=== PATIENT | female | born 1955 | race Caucasian/White ===

== ENCOUNTER 2020-06-03 07:52 | Outpatient (RCR) | payer OTHER, SELFPAY ==
[2020-06-03 07:57] VITALS: BMI 50.1
[2020-06-03 07:58] VITALS: BMI 50.1
== END 2020-08-26 14:00 | disposition home or self-care (01) ==
LOC: ANHDMC 07:52
PROVIDERS: PCP Internal Medicine; Visit Provider Internal Medicine
DX: E11.9 Type 2 diabetes mellitus without complications (principal); Z71.3 Dietary counseling and surveillance
CPT/HCPCS: 97802

== ENCOUNTER 2025-01-10 08:39 | Outpatient (CLI) | payer OTHER, SELFPAY ==
--- NOTE | ~2025-01-10 | CT_ITS ---
CT scan of the Neck Technique: 2.5 mm axial scans were obtained through the neck after intravenous administration of 75 c c Omnipaque 350. Coronal and sagittal reconstructions of the neck were obtained. Dose reduction techn ique was used on this scan by utilizing automated exposure control and iterative reconstruction techn ique. The dose-length product (DLP) was 571.20 mGy-cm. Clinical History: Lymphadenopathy Findings: No definite pathologic lymphadenopathy seen. Multiple minimally prominent shotty lymph nodes are pres ent, but not frankly enlarged by size criteria, with largest node measuring 9 mm in short axis. Parap haryngeal spaces appear normal bilaterally. The parotid and submandibular glands appear normal. The pharyngeal mucosal spaces appear normal. No soft tissue masses are seen in the neck. The thyroid gland appears normal. Images of the lung apices reveal no abnormalities. Impression: No significant abnormalities noted. Reviewed, dictated and finalized at [facility]. Impression: No significant abnormalities noted.
--- OUTSIDE RECORDS SUMMARY | 2025-01-10 08:51 | XMS_ITS | CONTINUITY OF CARE DOCUMENT ---
Author Name [email or web address] Address Unknown Organization [facility] Address [id number] [place] [address] [address] [place] [address] Phone [phone] Care Team Providers Care Ldr Nurse Name Role Phone Jarrell Cartwright MD Unavailable OMAIRA ESPINOZA, MESERET Unavailable MESERET CASTANO MD Unavailable [phone] PROBLEMS Condition Status Date Provider Notes Hypertension active Rosanne Hurd Abnormal electrocardiogram active Rosanne January nard Chest pain active Rosanne Hurd INS[employer]ANCE [employer] Payer name Policy type / Coverage type [place] [employer] party ID [facility] [id number] Other [id number] HISTORY OF PROCEDURES Procedure Date Procedure Name Provider Procedure Notes S tatus Stress EKG Dima Veras MD complete d Regadenoson, 4 units Jarrell Cartwright MD completed Cardiolite, 2 units Jarrell Cartwright MD completed SPECT Images Presley Burgess MD complet ed
--- OUTSIDE RECORDS SUMMARY | 2025-01-10 08:51 | XMS_ITS | Continuity of Care Document ---
Author Organization [facility] Address [address] [place] [address] Phone Care Team Providers Care Covered Button Maker Name Role Phone Darrell ESPINOZA, Awa Unavailable Unavailabl e Allergies, Adverse Reactions, Alerts Substance Reaction Status Criticality Sulfa (Sulfonamide Antibiotics) Rash Active No Information Medications Medication Instructions Dosage Effective Dates (start - stop) Status Comments prednisone 10 mg tablet TAKE 5 TABLETS BY MOUTH EVERY DAY - Active Xolair 150 mg/mL subcutaneous syringe INJECT THE CONTENTS OF 2 SYRINGES (300 MG) UNDER THE SKIN EVERY 4 WEEKS - Active levocetirizine 5 mg tablet take 1 tablet by oral route every day in the evening 5 MG - Active famotidine 40 mg tablet TAKE 1 TABLET DAILY AT BEDTIME - Active EpiPen 0.3 mg/0.3 mL injection, auto-injector inject 0.3 milliliter by intramuscular route once as needed for anaphylaxis 0.3 MG - Active Accolate 20 mg tablet TAKE 1 TABLET TWIC E A DAY 1 HOUR BEFORE OR 2 HOURS AFTER MEALS - Active Metrogel 1 % topical apply by topical route every day to the affected area(s) ; rub in gently and completely 0.00 - Active Orladeyo 110 mg capsule take 1 capsule by oral route every day 110 MG - Active ALBUTEROL HFA 90 MCG INHALER INHALE TWO PUFFS BY MOUTH EVERY 4 TO 6 HOURS NEEDED - Active ATORVASTATIN CALCIUM (unknown strength) take 1 tablet by oral route every day Not Available - Active triamterene 37.5 mg-hydrochlorothiazid e 25 mg capsule take 1 capsule by oral route every day 1.00 capsule - Active Procedures Procedure Date Omalizumab injection THER/PROPH/DIAG INJ SC/IM OFFICE/OUTPATIENT VISIT EST Omalizumab injection THER/PROPH/DIAG INJ SC/IM OFFICE/OUTPATIENT VISIT EST Omalizumab injection THER/PROPH/DIAG INJ SC/IM OFFICE/OUTPATIENT VISIT EST IMMUNOTHERAPY INJECTIONS Omalizumab injection THER/PROPH/DIAG INJ SC/IM OFFICE/OUTPATIENT VISIT EST IMMUNOTHERAPY INJECTIONS IMMUNOTHERAPY INJECTIONS IMMUNOTHERAPY INJECTIONS OFFICE/OUTPATIENT VISIT EST IMMUNOTHERAPY INJECTIONS THER/PROPH/DIAG INJ SC/IM Omalizumab injection OFFICE/OUTPATIENT VISIT EST RAPID DESENSITIZATION IMMUNOTHERAPY INJECTIONS OFFICE/OUTPATIENT VISIT EST RAPID DESENSITIZATION OFFICE/OUTPATIENT VISIT EST THER/PROPH/DIAG INJ SC/IM Omalizumab injection OFFICE/OUTPATIENT VISIT EST IMMUNOTHERAPY INJECTIONS OFFICE/OUTPATIENT VISIT EST IMMUNOTHERAPY INJECTIONS ROUTINE VENIPUNCTURE OFFICE/OUTPATIENT VISIT EST IMMUNOTHERAPY INJECTIONS ROUTINE VENIPUNCTURE OFFICE/OUTPATIENT VISIT EST THER/PROPH/DIAG INJ SC/IM Omalizumab injection IMMUNOTHERAPY INJECTIONS OFFICE/OUTPATIENT VISIT EST IMMUNOTHERAPY INJECTIONS OFFICE/OUTPATIENT VISIT EST IMMUNOTHERAPY INJECTIONS IMMUNOTHERAPY INJECTIONS IMMUNOTHERAPY INJECTIONS EXHALED NITRIC OXIDE SUZY AIRWAY INHALATION TREATMENT Prednisone ir or dr oral 1mg AIRWAY INHALATION TREATMENT Albuterol non-comp unit IMMUNOTHERAPY INJECTIONS OFFICE/OUTPATIENT VISIT EST OFFICE/OUTPATIENT VISIT EST IMMUNOTHERAPY INJECTIONS OFFICE/OUTPATIENT VISIT EST IMMUNOTHERAPY INJECTIONS ROUTINE VENIPUNCTURE OFFICE/OUTPATIENT VISIT EST IMMUNOTHERAPY INJECTIONS ROUTINE VENIPUNCTURE OFFICE/OUTPATIENT VISIT EST IMMUNOTHERAPY INJECTIONS OFFICE/OUTPATIENT VISIT EST PERCUT ALLERGY SKIN TESTS PERCUT ALLERGY SKIN TESTS Prednisone oral OFFICE/OUTPATIENT VISIT EST BREATHING CAPACITY TEST NASAL ENDOSCOPY DX OFFICE/OUTPATIENT VISIT EST OFFICE/OUTPATIENT VISIT EST OFFICE/OUTPATIENT VISIT EST OFFICE/OUTPATIENT VISIT EST OFFICE/OUTPATIENT VISIT EST Advance Directives Directive Yes / No Effective Date File Name No Information Encounters Encounter Description Practice Location Reason(s) For Visit Diagnoses Date Provider Providers Copied on Encounter OFFICE/OUTPA TIENT VISIT EST [facility] , [address], [place], [address], tel:[phone] [facility] Other allergic rhinitisChron ic idiopathic urticariaAlle rgic rhinitis due to animal (cat) (dog) hair and danderAllergi c rhinitis due to pollenCervica l lymphadenopat hy 5 Darrell Hamsa. [address], [place], [place], [address]. tel:[phone] [facility] , [address], [place], [address], tel:[phone] [facility] No Information 5 Darrell Hamsa. [address], [place], [place], [address]. tel:[phone] [facility] , [address] [facility] [facility] [address], [place], [address], [place] tel:[phone] [facility] No Information 5 Darrell Hamsa. [address] [facility] [address], [place], [place], [address]. tel:[phone] OFFICE/OUTPA TIENT VISIT EST [facility] , [address] [facility] [address], [place], [address], [place] tel:[phone] [facility] annual (chief complaint) Defects in complement systemChronic idiopathic urticariaAngi oedema, subsequent encounterOthe r allergic rhinitisRosac ea 5 Darrell Hamsa. [address], [place], [place], [address]. tel:[phone] OFFICE/OUTPA TIENT VISIT EST [facility] , [address] [facility] [address], [place], [address], [place] tel:[phone] [facility] annual and xolair (chief complaint) Angioedema, subsequent encounterChro vannessa idiopathic urticariaAlle rgic rhinitis due to animal (cat) (dog) hair and danderAllergi c rhinitis due to pollenDefects in complement systemMild persistent asthma, uncomplicated 4 Darrell Hamsa. [address], [place], [place], [id number]. tel:[phone] [facility] , [address], [place], [address], [place] tel:[phone] [facility] Allergic rhinitis due to pollenAllergi c rhinitis due to animal (cat) (dog) hair and danderChronic idiopathic urticariaAngi oedema, subsequent encounter Dec3 0- 3 Darrell Hamsa. [address], [place], [place], [address]. tel:[phone] OFFICE/OUTPA TIENT VISIT EST [facility] , [address] , [place], [address], [place] tel:[phone] [facility] annual (chief complaint) Body mass index [BMI] 45.0-49.9, adultAllergic rhinitis due to pollenOther allergic rhinitisAller gic rhinitis due to animal (cat) (dog) hair and danderAngioed viral, subsequent encounterEgg allergyDefect s in complement systemChronic idiopathic urticariaVacc ine counseling 2 Darrell Hamsa. [address], [place], [place], [address]. tel:[phone] Specialist : Gabe Medina, [address], [place], [address]. tel:[phone] [facility] , [address] , [place], [address], [place] tel:[phone] [facility] Allergic rhinitis due to animal (cat) (dog) hair and danderOther allergic rhinitisAller gic rhinitis due to pollen 2 Darrell Hamsa. [address], [place], [place], [address]. tel:[phone] OFFICE/OUTPA TIENT VISIT EST [facility] , [address] , [place], [address], [place] tel:[phone] [facility] f/u (chief complaint) Angioedema, subsequent encounterDefe cts in complement systemChronic idiopathic urticariaAlle rgic rhinitis due to animal (cat) (dog) hair and danderAllergi c rhinitis due to pollenOther allergic rhinitisEgg allergyBody mass index [BMI] 45.0-49.9, adult 1 Darrell Hamsa. [address], [place], [place], [address]. tel:[phone] OFFICE/OUTPA TIENT VISIT EST [facility] , [address] , [place], [address], [place] tel:[phone] [facility] Annual check-up (chief complaint) Allergic rhinitis due to animal (cat) (dog) hair and danderAngioed viral, subsequent encounterChro vannessa idiopathic urticariaAlle rgic rhinitis due to pollenDefects in complement systemBody mass index [BMI] 45.0-49.9, adult 1 Darrell Hamsa. [address], [place], [place], [address]. tel:[phone] Specialist : Gabe Medina, [address], [place], [address]. tel:[phone] [facility] , [address], [place], [address], [place] tel:[phone] [facility] No Information 0 Darrell Hamsa. [address], [place], [place], [address]. tel:[phone] OFFICE/OUTPA TIENT VISIT EST [facility] , [address], [place], [address], [place] tel:[phone] [facility] cluster (chief complaint) Allergic rhinitis due to animal (cat) (dog) hair and danderOther allergic rhinitisAller gic rhinitis due to pollenChronic idiopathic urticariaAngi oedema, subsequent encounterEsse ntial (primary) hypertension 0 Darrell Hamsa. [address], [place], [place], [address]. tel:[phone] OFFICE/OUTPA TIENT VISIT EST [facility] , [address], [place], [address], [place] tel:[phone] [facility] cluster immunotherapy (chief complaint) Allergic rhinitis due to animal (cat) (dog) hair and danderAllergi c rhinitis due to pollenOther allergic rhinitisAngio edema, subsequent encounterChro vannessa idiopathic urticaria 0 Darrell Hamsa. [address], [place], [place], [address]. tel:[phone] OFFICE/OUTPA TIENT VISIT EST [facility] , [address], [place], [address], [place] tel:[phone] [facility] here for breaking out (chief complaint) Allergic rhinitis due to animal (cat) (dog) hair and danderOther allergic rhinitisAller gic rhinitis due to pollenChronic idiopathic urticariaAngi oedema, subsequent encounterBody mass index (BMI) 45.0-49.9, adult January- 0 0 Darrell Hamsa. [address], [place], [place], [address]. tel:[phone] Specialist : Kin Robledo[address], [place], [address]. tel:[phone] [facility] , [address] , [place], [address], [place] tel:[phone] [facility] No Information 0 Darrell Hamsa. [address], [place], [place], [address]. tel:[phone] [facility] , [address], [place], [address], [place] tel:[phone] [facility] Chronic idiopathic urticariaAlle rgic rhinitis due to pollenOther allergic rhinitisAller gic rhinitis due to animal (cat) (dog) hair and dander 0 Darrell Hamsa. [address], [place], [place], [address]. tel:[phone] OFFICE/OUTPA TIENT VISIT EST [facility] , [address] , [place], [address], [place] tel:[phone] [facility] Annual check-up (chief complaint) Allergic rhinitis due to pollenChronic idiopathic urticariaRheu matoid arthritis, involving unspecified site, unspecified rheumatoid factor presenceEgg allergy 9 Darrell Hamsa. [address], [place], [place], [address]. tel:[phone] Specialist : Kin Robledo[address], [place], [address]. tel:[phone] [facility] , [address], [place], [address], [place] tel:[phone] [facility] Angioedema, subsequent encounterChro vannessa idiopathic urticariaAlle rgic rhinitis due to pollen Stuart-2 0-201 9 Darrell Hamsa. [address] [facility] [address], [place], [place], [address]. tel:[phone] [facility] , [address], [place], [address], [place] tel:[phone] [facility] Other urticaria Sep- 9201 8 Darrell Hamsa. [address], [place], [place], [address]. tel:[phone] OFFICE/OUTPA TIENT VISIT EST [facility] , [address], [place], [address], [place] tel:[phone] [facility] Angioedema, subsequent encounterAlle rgic rhinitis due to pollenOther urticaria Apr- 8- 8 Darrell Hamsa. [address], [place], [place], [address]. tel:[phone] OFFICE/OUTPA TIENT VISIT EST [facility] , [address], [place], [address], [place] tel:[phone] [facility] allergy evaluation (chief complaint) Chronic idiopathic urticariaAngi oedema, subsequent encounterOthe r allergic rhinitisBody mass index (BMI) 50-59.9 , adult Mar-09 11-201 8 Darrell Hamsa. [address], [place], [place], [address]. tel:[phone] OFFICE/OUTPA TIENT VISIT EST [facility] , [address] [facility] [place] [address], [place], [address], [place] tel:[phone] [facility] xolair injection (chief complaint) Allergy to pollenChronic idiopathic urticariaAngi oedema, subsequent encounter Aug- 6-201 7 Darrell Hamsa. [address], [place], [place], [address]. tel:[phone] OFFICE/OUTPA TIENT VISIT EST [facility] , [address], [place], [address], [place] tel:[phone] [facility] angioedema and hives (chief complaint)all ergy injections (chief complaint) Angioedema, subsequent encounterChro vannessa idiopathic urticariaAlle rgy to pollen Aug- 7 Darrell Hamsa. [address], [place], [place], [address]. tel:[phone] [facility] , [address], [place], [address], [place] tel:[phone] [facility] Follow Up of cluster immunotherapy (chief complaint) Allergy to pollenHivesAn gioedema, subsequent encounter 7 Darrell Hamsa. [address], [place], [place], [address]. tel:[phone] [facility] , [address], [place], [address], [place] tel:[phone] [facility] cluster immunotherapy (chief complaint) Allergy to pollenOther allergic rhinitisHives 7 Darrell Hamsa. [address], [place], [place], [address]. tel:[phone] [facility] , [address], [place], [address], [place] tel:[phone] [facility] allergy evaluation (chief complaint) Allergic rhinitis due to pollenChest congestion 7 Darrell Hamsa. [address], [place], [place], [address]. tel:[phone] OFFICE/OUTPA TIENT VISIT EST [facility] , [address], [place], [address], [place] tel:[phone] [facility] Follow Up of first allergy injection (chief complaint) Angioedema, subsequent encounterAlle rgic rhinitis due to pollenRash 7 Darrell Hamsa. [address], [place], [place], [address]. tel:[phone] OFFICE/OUTPA TIENT VISIT EST [facility] , [address], [place], [address], [place] tel:[phone] [facility] Annual check-up (chief complaint) Angioedema, subsequent encounterAlle rgic rhinitis due to pollenChronic urticariaHip pain, bilateralPain in left hip 7 Darrell Hamsa. [address], [place], [place], [address]. tel:[phone] OFFICE/OUTPA TIENT VISIT EST [facility] , [address], [place], [address], [place] tel:[phone] [facility] allergy evaluation (chief complaint) Angioedema, subsequent encounterAlle rgic rhinitis due to pollen 6 Darrell Hamsa. [address], [place], [place], [address]. tel:[phone] OFFICE/OUTPA TIENT VISIT EST [facility] , [address], [place], [address], [place] tel:[phone] [facility] Annual check-up (chief complaint) Angioedema, subsequent encounterAlle rgic rhinitis due to pollenChronic urticaria 6 Darrell Hamsa. [address], [place], [place], [address]. tel:[phone] [facility] , [address], [place], [address], [place] tel:[phone] [facility] Unspecified osteoarthriti s, unspecified site 5 Darrell Hamsa. [address], [place], [place], [address]. tel:[phone] OFFICE/OUTPA TIENT VISIT EST [facility] , [address], [place], [address], [place] tel:[phone] [facility] reactions from allergy injections (chief complaint)rev iew of her lab work (chief complaint) Other allergic rhinitisAller gic rhinitis due to animal (cat) (dog) hair and danderLocaliz ed edemaAllergic urticariaFood allergy Jun- 8-201 5 Darrell Hamsa. [address], [place], [place], [address]. tel:[phone] OFFICE/OUTPA TIENT VISIT EST [facility] , [address], [place], [address], [place] tel:[phone] [facility] start her first allergy injections (chief complaint) Angioneurotic edemaAllergic rhinitis due to pollen 5 Darrell Hamsa. [address], [place], [place], [address]. tel:[phone] OFFICE/OUTPA TIENT VISIT EST [facility] , [address], [place], [address], tel:[phone] [facility] Follow Up of from january (chief complaint) Allergic rhinitis due to pollenOther adverse food reactions, not elsewhere classifiedAng ioneurotic edema Stuart-2 2 5 Darrell Hamsa. [address], [place], [place], [address]. tel:[phone] OFFICE/OUTPA TIENT VISIT EST [facility] , [address] [address], [place], [address], tel:[phone] [facility] Follow Up of from (chief complaint) Allergic rhinitis due to pollenOther adverse food reactions, not elsewhere classifiedCou ghChronic rhinitis 5 Darrell Hamsa. [address], [place], [place], [address]. tel:[phone] OFFICE/OUTPA TIENT VISIT EST [facility] , [address], [place], [address], [place] tel:[phone] [facility] allergic reaction (chief complaint) Angioneurotic edemaAdverse food reactionDysur ia 4 Darrell Hamsa. [address], [place], [place], [address]. tel:[phone] OFFICE/OUTPA TIENT VISIT EST [facility] , [address], [place], [address], [place] tel:[phone] [facility] follow up from the hospotal (chief complaint) Angioedema 4 Darrell Hamsa. [address], [place], [place], [address]. tel:[phone] OFFICE/OUTPA TIENT VISIT EST [facility] , [address] [facility] [address], [place], [address], [place] tel:[phone] [facility] blood work (chief complaint) Adverse food reactionAbnor mal clinical finding 4 Darrell Hamsa. [address], [place], [place], [address]. tel:[phone] OFFICE/OUTPA TIENT VISIT EST [facility] , [address], [place], [address], [place] tel:[phone] [facility] angioedema and hives (chief complaint) Hives or welts on the skin that appear suddenly duAngioedema 4 Darrell Hamsa. [address], [place], [place], [address]. tel:[phone] Family History Family Member Type Diagnosis Age At Onset Problem (finding) Family history of Systemic lupus erythematosus Immunizations Vaccine Date Status Comments SARS-COV-2 (COVID-19) vaccin e, mRNA, spike protein, LNP, preservative free, 100 mcg/0.5mL dose (Moderna) administered Source: Other Provid er Influenza, injectable, quadrivalent, preservative free, 3 yrs or older administered Note: she received t he flublcok ; Source: Other Provider Payers Payer name Insurance type Covered libertarian ID Authoriza tion(s) [facility] Choice/Choice Plus E2 [id number] Social History Type Description Quantity Date Captured Comments Alcohol Use Details Unknown Caffeine Use Details Unknown Tobacco Use Status No Information Smoking Status No Information Sex Female Vital Signs Date / Time: Height Weight BMI Pulse Rate Blood Pressure Temperature Respiratory Rate Body Surface Area Head Circumference Head Circ. Percentile Wt./David. Percentile BMI percentile Pulse Ox Inhaled Ox 9:49 AM 61.00 in 113.398 kg (250.00 lbs) 47.2 4 kg/m eter (2) 66 /min 118/78 mm[Hg] 98 % Chief Complaint And Reason For Visit No Information Reason For Referral Reason For Referral No Information Plan Of Treatment Date Type Action Status Referral Ordered: Jannie Torres -Rheumatology (related to Unspecified osteoarthritis, unspecified site) ordered Referral Referred To: Jannie Torres [address] [place], [place], [phone] Ordered: Referrals: Jannie Torres -Rheumatology Consult ordered History Of Present Illness Encounter Date Complaint History Of Prese nt Illness annual This is an annua l appointment for patient1-patient has severe allergic rhinitis. 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 Patient has not had blood work in quite some time. But the hives are extremely rare coming on very occasionally, even if it comes on it never wakes up in the middle of the night and she has not required frequent doses of prednisone as she used to in the past period. Her last prednisone Nuz was in June.-Patient presented with soft tissue swelling. She would swell up on her cheek cheeks, then swell up in the soft tissue of her hand, and then her lips would swell up. Ever since starting. Orladeyo-She has not had frequent and severe soft tissue swelling/ angioedema-Not requiring prednisone.-the combination of orladeyo, famotidine,xyzal has helped her the most.-Since montelukast has a FDA black box I reviewed the same thing with the patient for zafirlukast and patient says other than stress in her personal life. She did not have any other problems.-Her rosacea is becoming worse. She was given doxycycline, but it started upsetting her stomach. She has a lot of indigestion with and without food. -Colonoscopy is due next year. Mammogram is past due she works full-time and between taking care of her and working full-time. She has not had time to schedule a mammogram. 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 But because of her personal stress and her family situation she has not been able to. Regular with her allergy injections. However, she feels this allergy season. She has done very well without nasal congestion, postnasal drainage, or sneezing.-Patient has history of chronic in addition to having severe soft tissue swelling, including lip, mouth, chin and hand. Her. Complement levels have always been normal opinion this is also stable-She gets 300 mg xolair-extremely regular. She at least tries to come here every four or five weeks to get her injection and she has not had any. Hives-no need for prednisone in a very long time however takes daily. XyzalSkin is a little dry-she has severe rosacea on her face, which is also new.-She started having severe angioedema which could not be controlled, and she would have flareups in spite of xolair and allergy injections. She was then started on orladeyo-no G.I. symptoms and her angioedema is gone 100%.-Asthma, nasal congestion/sinus infections are also under control. She has not needed rescue inhaler in a very long time continues to take. Zafirlukast-and needs a refill. Her primary care physician will be doing bloodwork soon.Colonoscopy four years ago she passed due for her mammogram. Pap smear was one year ago.Meiners Is under control she has tinnitus no dizziness no vertigo. She's not had a hearing test in a long time but feels that is normal. annual Patient is here for her injections and for her annual exam, extremely stressed because her was recently diagnosed with colon cancer with Mets to the liver. He also had a massive pulmonary embolism and is currently in the hospital. He will come home soon for her to care for him. She has taken FMLA from work and soon at the end of July has to go back to work.She has a good support system around her.Patient will receive her Zoeller injection today. Hives are under control for the most part. In addition to hives her asthma is also under control surprisingly with stress. Patient also gets allergy injections which was continued in spite of Xolair because she had severe grass allergy. That is also going well without any problems and she has no contraindications at the end of four weeks patient feels that she needs her allergy injections. She gets Dust and mold in one bottle, cat head in the other, and grass and tree pollen in the other.Patient started having angioedema-She has gone to see Plasma Processing Technician, multiple testing including compliment levels have always been normal. Suspicion of HAE type three patient was started on Orladeyo which has really helped her. She was 100% asymptomatic till the recent stress in her family and very recently she had one small episode which only needed 20 mg of prednisone. In the past patient used to take tapers of prednisone at least once every two months. That has not happened in a long time. No G.I. side effects with the medication's.Patient needs her influenza vaccine but needs to look for that egg free flu shot. She has had 2+ one Covid infection. f/u Here for a follo w up, she will also get her allergy injection today. Patient is doing very well on Orladeyo-No G.I. side effects, last liver function was done in April 2021 and was normal. In the past patient Used to get lip, eyelid, hand and cheek swelling. Now on the Orladeyo Occasionally, both less frequent and less severe, she gets it only on her hand, it lasts for only a few hours. Since starting the Orladeyo 110 mgs She has not needed prednisone, last prednisone was in March, prior to this she was taking it at least once every 45 days. No need for extra antihistamines. She used to take an extra Benadryl or Zyrtec almost every week. She still has joint aches and pains. She is still getting breakthrough hives but has noticed that the hives are also responding well to the Xolair ever since she started the orladeyo-Previously they would be an outbreak by the third week after her Xolair , now the outbreaks are happening 1 to 2 days before Xolair. She has egg allergies and will call for eggs free flu shot. She used her albuterol two weeks ago, and yesterday she needed it also due to the season change. No nocturnal symptoms. Covid testing done recently negative. Allergy injections are going well. The only complaint is somnolence during the daytime. In spite of wearing a CPAP machine at night. Annual check-up Last week she ochoa d her blood test - CMP - Results are pending, she will call me with it when she hears from PCP Has been tired 1. Allergies are under control- LAST 2 WEEKS she has had break outs of hives and angioedema with swollen hands , around her joints -she is very regular with her meds and she added 30mgs of prednisone- last dose was last night 2 lip swelling - last time was 4 months ago 3 eye lid swelling was one year ago 4 not as frequent but she continues to get hand swelling , once a month , lasts for 2 days , adds prednisone when it does not get better, when it is bad- when the swelling is severe and itchy hives 2016, when she was started on the xolair. She is very regular with Xolair.She admits that does all that has helped considerably but not at 100%. She used to take prednisone way more often multiple times a week she has cut that down to at least once a month. She thinks the humidity makes it worse. cluster here for her sec ond set of cluster immunotherapy injections, she has not had her prednisone in one week , her face is red and she has no symptoms , she has no hives , skin is not itchy , she is fine with her next cluster she forgot to take her eye drops this morning no chest symptomsno hives, her face has been red and that is her baseline no soft tissue swelling cluster immunotherapy Due to the COVID 19 pandemic , she has stopped allergy injections , she was on her Xolair without missing any dose she started having soft tissue swelling and has needed frequent prednisone courses , she has noticed that without her allergy injection she was getting more angioedema she was told to get a cluster done, she agreed and she is here for her first cluster injection today - no symptoms- her swelling is better - no itching , no hives - chest feels great- she has 3 more weeks for her xolair here for breaking out Patient is here for her scheduled Xolair injection. She was started on the Xolair because of history of urticaria and Angioedema.Around the same time she was also started on allergy injections because pollen allergy caused problems. In spite of all these and medications patient has continued to have swelling up her hands or soft tissue from time to time. She was seen and evaluated by Plasma Processing Technician - Call investigation was negative. Due to the COVID-19 pandemic patient had decided Only to get the Xolair and to stop her allergy injections. It has been 15 weeks since she got her allergy injections. In the past 15 weeks patient has continuously needed prednisone as she has had multiple episodes of swelling. Today her face is completely swollen. Under her chin it is swollen. Soft tissues are slightly swollen. She was doing so well that I had cut back on the zafirlukast to once a day.She is taking Xyzal twice a day. She is on scene with the maria a over the counter. No difficulty breathing and no shortness of breath. 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 She has not been exposed to anybody who has been sick.She has a dog at home and has minimal done yardwork. Patient herself noticed that while she was an all medications the frequency in the severity of swelling was much less. Patient gets three bottles of injection.She gets Dust and mold in one bottle,Cat in another and Pollen by itself. Annual check-up Patient is here for her annual exam. She did receive an allergy injection today. She continues to break out into mild-hives/angioedema.Overall it is better but unfortunately she has been unable to get off the prednisone. She uses 20 mg of prednisone as needed. Last use was two days ago. She is still unable to find a trigger and thinks that it is the pollen in the air that causes acute hives and Angioedema This is in spite of Xolair which according to the patient has most definitely helped.In addition the patient takes accolate And is on allergy injections.Dr. Medina her wood coater will be starting her soon on Plaquenil for the diagnosis of rheumatoid arthritis.Right knee still gives her a lot of problems.She has not yet received her flu shot as she's allergic to egg and she is worried that it would flare the angioedema She has seen her primary care physician. She has not seen an OB in a long time, she has had a total hysterectomy. She is behind on her mammogram and cannot recall getting a bone density test.We had discussed testing her for the new panel of mold but patient is unable to get off for [id number]-Xmcdi and Azelastine allergy evaluation Here for her allergy injections, Xolair was last week ( for 3 weeks after the Xolair she had no hives, ) last week when she was due for the Xolair she had hives and needed prednisone, this is the first week after xolair and she has no hives , Her meds- 10mgs xyzal , 20 mgs acoclate once a day , 800mgs cimetidine once a day , azelastine , epinasty eye drops, SCIT and Xolair , She takes diazide water pill1. Her SCIT is going well and she wants to continue it at least thru summer and spring- cough is not there, still has PND - moderate , but over all feels it helps a lot 2. So far she has received 4 xolair injections -consistently after she gets them , her joints hurt - at least for a week , no local reactions , no flu like symptoms , it is not very bother some or does not affect QOL, but she can notice it 3. she has heart burn and indigestion , takes Nexium ,symptoms are more in the night 4. She has had no angioedema since the xolair xolair injection Here for her SC IT and her fist xolair injections as she continued to have hives and angioedema, requiring prednisone very week, she has no complaints today and is doing wellShe just finished another round of steroids, she continues to take her meds and she has had no local reactions with the injections that have been slowly increasing in concentration angioedema and hives Comes in fo r her allergy injection , but her right upper eyelids are swollen, her arms, forearms and underarms are broken out into hives, she has not done anything different, her lips are fine, she has no GI and /or resp symptoms, the hives started yesterday and she has finished all her prednisone She has been using her prednisone at least once a week for hives and/or angioedema, her palms are red and itchy , she has seen her wood coater but no sure diagnosis has been made allergy injections Follow Up of cluster immunotherapy Patient is on cluster immunotherapy, last one was , one week ago , 48 hours after the last injection, she developed angioedema of her left cheek and chin, she had no local reaction at the site of the injection and as always there seem to be no clear reason, she had no breathing issues, she could talk , she self medicated with predniosne , she in on once a day 20 mgs accolate and once a day cimetidineshe was fine till last night - she developed a huge hive under her right arm, she still has mild swelling on the right and left side of her cheek , No other symptoms her skin is dry but not itchy , she has no headaches and no coughing or URI or LRI symptoms cluster immunotherapy Was on SCI T which she stopped and is here for a rapid build up- every week , she finished her 10 PNU and is to start her 100PNU ,she had a cough and chest congestion last week and has done well for the last 2 days, no local reactions at the site of injection, and symptoms did not get worse after the last injection She was given the option of stopping the cluster and going to one dose , she does not want to , she wants to try and get the cluster done She has had no AngioedemaShe has had hives on her genital area probably from pressure, they were very itchy and she self medicated with prednisone and they went away and today is gone allergy evaluation Patient was o n allergy injections which she stopped and is back now for a re-start , we discussed cluster and one week ago a set of 3 - 10 PNU starting at 0.10 cc, 0.20 cc and then 0.30 cc , 30 minutes apart was given on Tuesday , that night she was fine, next day no fevers and no chills, she had some chest tightness and a cough- started with discolored mucous- she took some proair which helped and self started on 20mgs prednisone , next day she saw her PCP - and was given a Z pack and the last one was yesterday , she also took proair -may be 5-6 times a day , not in the middle of the night , she had no local reactions to the injections, she felt some pressure hives around bra line , no angioedema She currently has a raspy voice and she has a cough , when she takes a deep breath and breaths out she ends up with a cough Follow Up of first a llergy injection Here to re-start her allergy injection, she has a red itchy patch on her right shoulder under her bra strap , no other angioedema and no hives or any itching , she has no allergy symptoms, I discussed her consent from with her and she has taken her medications this morning No coughing and no chest symptoms No GI symptoms No headache Annual check-up This is an bobby Jaramillo, she saw a wood coater - last week - spoke to him about her angioedema , she now gets welling in her fingers , elbows, knees and feet, Dr. Marie- has not started her on any new meds but has sent for blood work she stopped SCIT aug 2016 and wants to restart as it helped with her symptoms due to high mold levels which included , watery teary eyes and the hives , she now describes pressure urticaria her meds are - 10 mgs Montelukast at bed time, 20mgs of Zyrtec at bed time, 400mgs cimetidine at bed time, azelastine nasal 2 sp each nostril BID, epinastine eye drops and dyazide for HTN she was last seen 11 months ago and from then till now , she has had to go to urgent care 4 times- each time -with massive hives , her recent visit was last month and her last prednisone was last nightShe also has hip and knee pain , the knee pain is worse when she has some leg swelling , bone density was done by her - OBDIANEN - 2 years ago - she was told she has osteopenia- not on any medsShe refuses to get her flu shot although 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 works as a 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 She has started an exercise regimen by joining an ex club has a dog at home, no water leak at home, no carpets at home allergy evaluation Ella is here for her allergy injections, she has swelling in her lower lips and left side of her cheek, her eyelids are not swollen, her hands and feet are not currently swollen , she can talk , breath and swallow She noticed it last night , took 10 mgs prednisone along with her 10 ms zyrtec , 400mgs cimetidine and montelukast ,her only other med is diazide She did take Aleve at 530 last evening and this started at 730 PM No reaction after her last allergy injection No new meds and no exposure to outside wind or other animals , she has a dog at home This swelling is less frequent and severe since she started her allergy injections but does resurface from time to time without any obvious the triggers Annual check-up Toshiacharles mansoor briseno nferring her SCIT injections to the office, she has no update and no new meds and no new medical Hx, PCP appointment was on Sep 2015 all blood work was normal , she is willing to continue her SCIT in spite that my office will be a long drive for her , magaly time she goes to the office , even if she has mild hives or if she has mild swelling in her hands an dfeet the office does not give her , her injections and so she has ,missed too many injections an dhas been unable to buil up , she thinks the SCIT has helped as her symptoms used to be worse she has chronic hives -she gets them 1-2 times a month, mainly in her arms , they are better - the frequency and severity is better- used to have them every day not now , no nocturnal hives at all, she leaves it alone and she goes away , if she takes another zyrtec , it goes away , she has taken PRN prednsione in the past -6 months - alteast - 4 a week each month. her angioedema- mainly in her hands and face - some times with hives - not worse, mild and resolves within 24-48 hours, her hives and angioedem are aways worse in november and december with SCIT - she thinks her allergy symptoms, hives and angioedema are better, still has angioedema but not as severe, no nocturnal at all and no thorat symptoms and no ER visits reactions from allergy injection charles jaramillo was asked to come in here to get her allergy injection , she is on 100 PNU , she is very regular and may be very mild local reactions Not related to her allergy injections she gets very minor allergic like - reactions- swelling in the arch of her foot, knuckles on her hand , right eye-gets redness and swelling and itching -these are random , she usually wakes up in the morning with these reactions feet swelling is always at night -they can hurt , itchy and the area feels hot , last time, she thinks it was is in relation to the allergy injections: she had minor local redness after the injection on 05-29 , it was mildly ithcy - she got it around 3:45 pm and waited 1/2 hour ,at 7:00pm that night her eyes , left hand and feet were swollen - pain , redness and itching locally she took zyrtec , also took prednisone at 10:00pm as she has more of the itchy and swelling and now she has hand swelling - 20 mgs prednisone at 11:pm and all her reactions were gone the very next day ,this was the first time she had a reaction with the allergy injectionno associated chest or GI issues earlier that day she was at work - spent a lot of time in play ground duty- no lunch , for breakfast she ate fruit and yogurt , dinner was after the reaction started and she had gone out to eat -steak , potato and brocolli review of her lab work Sep 2013- ESR was slightly elevated at 37 , normal is <30 CBC showed mild elevtaed WBC but she was on prednsione2013 IgE was normal , immunocap was positve for egg white skin tets was positive for dust , cat , tree, grass and moldalso positive for sesame seed, peanuts, treenuts and egg [id number] were not lowTSH was normal CU panel was 0CBC and CMP was normal start her first kristin rgy injections over all Ella is doing well, 3-4 days ago she was sick ,after she ate she was sick to her stomach , tired and had flu like symptoms , she is better today , she knows she needs to hydrate more ,when she was sick she started with hives - took zyrtec BID and that helped , no lip swelling and no angioedema at that timeshe has been symptoms free, she has not had any hives or angioedema after her last vitis 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[place] and she has a consent form from the person who will administer her injectionsEpipen and syriges have been called in to her phramacy Follow Up of from january Ella has f inally been able to stop her antihistamines and she is doing well, she has been off meds since last tuesday -her throat is starting to get scratchy, she had mild not progressive angioedema of her hands and feet since she stopped her meds, not bad,not severe -lasted 48 hours , and went away ,She still feels swollen on her left foot, , right ankle, mildly in her fingers , none on her face chest- is fine except with exerction she feels short winded skin- is getting mildy itchy , nape of her neck had a few hives and some on her arms stomach feels fine did have some constiation ,after she ate too much dairy and that was followed by diarrhea for 2 daysocc she can get dizzy - stuffness in her eyes, ears and noseAt home she has no carpets, heavy rain has caused her basement to have a mild water leak , dog at home, son's house has catno barn exposue 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 she knows she cannot eat any peanuts, treenut , sesame seed ,shell fish,eggsalthough she has no concern for stinging insects -never been stung as an adult - as a likke kid she remembers being stung by small bees after stepping on them - she describes a large local - limited to one joint space swelling , did not pass out Follow Up of from Ella's voice is hoarse, she felt like she was getting some swelling in her thorat this morning, she self started on prednisone 20 mgs , last night she was coughing , no snzeeing , feels like there is post nasal drainage , no fevers or chills, no new food- she stays away from peanuts , tree nuts, egg , sesame - she tells me she has not had any accidental ingestions took zyrtec yesterday and today - she was supposed to stay away from them and comein for a skin test eyes are itchy , like pink eye and matted , allergy eyes drops OTC no help, ears -have been full and itchy chest has been mildly tight , breathing has been heavy and she has a deep sigh from time to time no wheezingsleeps well at night with a CPAP ,Dr. Juan Antonio Clark in [facility] is her PCP allergic reaction has c alled 04-11 for prednisone, she walks in here today with her right eyelid swollen shut . she has been off zyrtec for 8 days and 5 days ago she had to take 10mgs prednisone left over as she felt an itching in her thorat and saw hives under her neck and chin I saw her last in January last and she was fine up until 2 weeks ago , in the interm she had minor angioedema of her feet , hands and face and some hives, never been this bad- she has an epi but has not needed it epi and nor had to go to the ER .Some times she has felt like she could have taken her prednsione, she even tried and took an extra zyrtec that did not help . 2 weeks ago when she had some angioedmea, she had no help with any meds, added benadryl - no help , she then took prednsione for 7 days - took 6 and then stopped , this morning when she woke up ,her right eye was completely closed shut and swollen ,her hands are itching and her left foot is itchy.yesterday - morning she was fine, she drove thru [employer] for breakfast and -ate grill hines and cheese -no egg ,drank tea, did not have any lunch , no snack, dinner was - donalds - ham burger and tea , not outdoor activity, no cleaning , no exposure to latex , last pain med was 1 week ago -as she had nasal congestion similar to cold-took tylenol, no new supplementsnever a smoker,mammograma was 10 years ago , PAP was 2 years, colon- 5 years ago ,not due for 5 years Functional Status Date Functional Assessmen t No Information Instructions Date Instruction Additional Infor duane Giving encouragement to exercise Related to Body mass index [BMI] 45.0-49.9, adult Giving encouragement to exercise Related to Body mass index [BMI] 45.0-49.9, adult Dietary needs education Related to Body mass index [BMI] 45.0-49.9, adult Dietary needs education Related to Body mass index [BMI] 45.0-49.9, adult Giving encouragement to exercise Related to Body mass index [BMI] 45.0-49.9, adult Weight monitoring Related to Bod y mass index (BMI) 45.0-49.9, adult Dietary needs education Related to Body mass index (BMI) 45.0-49.9, adult Dietary needs education Related to Body mass index (BMI) 50-59.9 , adult Giving encouragement to exercise Related to Body mass index (BMI) 50-59.9 , adult cc to Dr Marie and Cc :Dr Vernon christie Related to Angioedema, subsequent encounter Risks and Benefits o f allergy injections was explained, informed consent was signed by the patient to receive out of office immunotherapy, patient was infomed that she was expected to stay in the office for 30 minutes for observation, should inform office in case of change in insurance and medications, should notify the office if she is sick .All questions were answered Related to Allergic rhinitis due to pollen Allergy immunotherap y education provided. Related to Allergic rhinitis due to pollen cpnsent form to reci magi allergy injections outside the office was given to the patient, she will get it signed and will come here for her first allergy injections. Risks and Benefits of allergy injections was explained, informed consent was signed by the patient to receive in office immunotherapy, patient was infomed that she was expected to stay in the office for 30 minutes for observation, should inform office in case of change in insurance and medications, should notify the office if she is sick .All questions were answeredepi and syringes sent Related to Allergic rhinitis due to pollen Related to Angio neurotic edema How to read food lab els education provided. Related to Other adverse food reactions, not elsewhere classified In preparation for a skin test avoid antihistamines including oral, topical, eye drops and nasal sprays; avoid using topical steroids on your back; no oral steroids for 7 days before the skin test.- eye drops, astelin and zyrtec RHINOSCOPY was done to rule out infections, she had swolen tubinates and clear drainage no infected mucous Related to Cough after blood work liudmila dickerson be drawn at lab [facility] she was asked to - use ice on eye lid - keep epipen handy for worst reactions- start on prednisone 10 mgs - take on a full stomach - 5 today , 4 for 2 days, 3 for 2 days , 2 for 2 and one for 2 days Blood work was sent for complements, serum tryptase, CBC and CMP Related to Angioneurotic edema She was strictly abilio d not to consume peanuts, treenuts, sesame seed and egg- avoid contact with them and do not cook for the family with these ingredients, avoid all products made in the same facility that process these . Related to Adverse food reaction Assessments Type Assessment Date assessment Other allergic rhinitis assessment Chronic idiopathic urticaria January assessment Allergic rhinitis due to animal (cat) (dog) hair and dander assessment Allergic rhinitis due to pollen assessment Cervical lymphadenopathy 2024 Patient Care Teams Name Effective Dates (start - stop) Status Members No Information
--- OUTSIDE RECORDS SUMMARY | 2025-01-10 08:51 | XMS_ITS | Clinical Summary ---
Author Organization [facility] D Address [address] [place] [address] Care Team Providers Care Phone Circuit Operator Name Role Phone Juan Antonio Loo MD Primary Care Provider Gabe Mdeina MD Unavailable [phone] Awa Ramírez MD Unavailable [phone] Allergies Active Allergy Reactions Criticality Noted Date Comments Animal Dander Wheezing High 06/30/2017 Egg Hives,Angioedema High 06/30/2017 Grass Pollen Wheezing Medium 06/30/2017 Nuts Hives,Angioedema High 06/30/2017 Shellfish Containing Products Hives,Angioedema High 06/30/2017 Sulfa (Sulfonamide Antibiotics) Rash Medium 06/06 Medications triamterene-hyd roCHLOROthiazid e (triamterene-hy droCHLOROthiazi de) 37.5-25 mg per tablet/capsule Take 1 tablet/capsule by mouth daily. Active epinastine 0.05 % ophthalmic solution 1 drop 2 (two) times a day. Active azelastine (ASTELIN) 137 mcg (0.1 %) nasal spray Administer 1 spray into each nostril 2 (two) times a day. Use in each nostril as directed Active cimetidine (TAGAMET) 400 mg tablet Take 400 mg by mouth 2 (two) times a day. Active predniSONE (DELTASONE) 20 mg tablet Take by mouth. PRN Active levocetirizine (XYZAL) 5 mg tablet Take 5 mg by mouth 2 (two) times a day Active zafirlukast (ACCOLATE) 10 mg tablet Take 10 mg by mouth 2 (two) times a day Active omalizumab (XOLAIR) 150 mg injection 300 mg every 30 (thirty) days Active diclofenac-miSO PROStol DR (ARTHROTEC 70) 75-200 mg-mcg EC tablet 9 Active EPINEPHrine (EPIPEN) 0.3 mg/0.3 mL auto-injection syringe Inject 0.3 mL into the muscle as instructed 8 Active PROAIR HFA 90 mcg/actuation inhaler 9 Active hydroxychloroqu ine (PLAQUENIL) 200 mg tablet Take 1 tablet (200 mg total) by mouth 2 (two) times a day 60 tablet 3 9 Active Active Problems Problem Noted Date Diagnosed Date Obstructive sleep apnea on CPAP 06/06/2019 Degenerative tear of posteri or horn of medial meniscus of right knee 06/06/2019 Overview (06/08/2019): MRI Knee Right WO Contrast Order: [id number] Status: Final result Visible to patient: No (Not Released) Dx: Primary osteoarthritis of right knee;... Details Reading Physician Reading Date Result Priority Will Zimmerman MD 06/08/2019 Narrative RESULT: HISTORY: Right knee pain and instability EXAMINATION: MRI KNEE RIGHT WO CONTRAST ORDER DATE: 06/08/2019 8:15 AM TECHNIQUE: Multiplanar, multisequence MR imaging is obtained COMPARISON: NONE FINDINGS: MENISCI: Medial meniscus: Longitudinal tear posterior horn. Cannot exclude possible root tear with mild meniscal displacement into the medial gutter Lateral meniscus: Intact. LIGAMENTS: Cruciate ligaments: Thinning and edema in the femoral side of the ACL. Medial collateral ligament: Superficial and deep components intact. Mild periligamentous edema. Lateral collateral ligament: Intact. Posterolateral corner structures: Intact. EXTENSOR MECHANISM: The distal quadriceps and patellar tendons are intact. The patella is normally positioned within the femoral groove. There is no retinacular disruption. FLUID: No joint effusion. Small Silveira's cyst. OSSEOUS and ARTICULAR STRUCTURES: Bones: No fracture, subarticular marrow edema in the medial tibial plateau. Patellofemoral compartment: Marked patellar chondrosis. Medial compartment: Severe narrowing with severe cartilage thinning and degeneration and marrow edema in the medial tibial plateau, 2 millimeters of extrusion into the medial gutter of the medial meniscus Lateral compartment: Moderate hyaline cartilage thinning OTHER FINDINGS: None. Impression Posterior horn medial meniscal tear with extrusion into the medial gutter Edema in the femoral component of the ACL question strain or partial tear Medial collateral ligament edema Electronically signed by: Will Zimmerman M.D. Specimen Collected: 06/08/19 09:40 Last Resulted: 06/08/19 09:55 Assessment & Plan (06/06/2019 5:45 PM CDT): See discussion above. MR knee requested. Primary osteoarthritis of right knee 06/06/2019 Assessment & Plan (06/06/2019 5:44 PM CDT): Patient with spontaneous onset severe R knee pain x 1 week with inability to bear weight. She has mild tenderness at patella and tibia with outside x-rays (unavailable today for our review) reportedly documenting osteoarthritis but no acute fracture. She has been managing pain with Arthrotec and a brief steroid pulse ordered by her PCP. She has moderate pain and some laxity suggesting possible injury to collateral ligament or meniscus. Will obtain MR knee to rule out same. Further management plans pend imaging review. Undifferentiated inflammatory arthritis 03/26/20 Overview (06/06/2019): Images from the original note were not included. US Hands Bilateral for Rheumatoid Arthritis (C) Order: [id number] Status: Final result Visible to patient: No (Not Released) Dx: Swelling of multiple joints Details Reading Physician Reading Date Result Priority Armani Jeffries MD PhD 04/09/2019 Schedule Routine, Read Routine (OP Routine) Werner Dinh MD 04/09/2019 Narrative EXAMINATION: 1. US HANDS BILATERAL FOR RHEUMATOID ARTHRITIS (C) HISTORY: Arthritis. FINDINGS: Grayscale and color Doppler images of the bilateral hands were obtained. Comparison is made to left and right hand radiographs 03/26/2019. Small amount of fluid without increased vascularity is seen along the bilateral 1st and 2nd metacarpal phalangeal joints. The 1st interphalangeal joints, 2nd proximal interphalangeal joints, 3rd metacarpal phalangeal and proximal interphalangeal joints are normal. No erosions are noted. Small amount of fluid surrounds the extensor tendons on the mid dorsal wrists, likely the 3rd/4th compartments. Impression 1. Small bilateral 1st and 2nd metacarpal phalangeal joint effusions without increased vascularity or thickening to suggest synovitis. 2. No erosions are seen. 3. Small amount of fluid surrounds the extensor tendons of the bilateral mid dorsal wrists without evidence of tenosynovitis. Dictated by: Werner Dinh M.D. The radiology attending physician has personally reviewed this study, and had reviewed and/or edited this written report and agrees with it. Electronically signed by: Armani Jeffries MD, PHD Specimen Collected: 04/09/19 12:11 Assessment & Plan (06/06/2019 5:41 PM CDT): Reviewed with patient ultrasound findings consistent with inflammatory arthritis: 1. Small bilateral 1st and 2nd metacarpal phalangeal joint effusions without increased vascularity or thickening to suggest synovitis. 2. No erosions are seen. 3. Small amount of fluid surrounds the extensor tendons of the bilateral mid dorsal wrists without evidence of tenosynovitis. Dictated by: Werner Dinh M.D. The radiology attending physician has personally reviewed this study, and had reviewed and/or edited this written report and agrees with it. Electronically signed by: Armani Jeffries MD, PHD Recommend consider trial hydroxychloroquine. Discussed risks and benefits. Patient educational materials provided. Will defer initiating Rx until more acute R knee pain/instability addressed (see below). Assessment & Plan (03/26/2019 4:26 PM CDT): Images from the original note were not included. Patient returns after 20+ month absence for evaluation recurrent swelling hands/wrists, feet/ankles in the setting of chronic urticaria. Previous screening for associated autoimmune disease (06/2017) unremarkable: She provides photodocumentation of Swelling hand, forearm and thumb some of which looks as if it is giant urticaria (associated with itching per patient), but other suggests palindromic rheumatism or synovitis (?CPPD) given heat and severe pain. Will update lab as per orders including x-ray hands/wrists (rule out erosions; rule out chondrocalcinosis). Further diagnostic and management plans pend review of same. 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 Previous screening for associated autoimmune disease (06/2017) unremarkable. Alpha-1 antitrypsin normal. She has had rare recurrent respiratory embarrassment from angioedema (one hospitalization 08/2018 discussed). She denies fever, chills, abdominal pain, diarrhea. Will check tryptase (rule out MCAS). Assessment & Plan (06/30/2017 12:40 PM CDT): As above. Urticaria 06/30/2017 Assessment & Plan (03/26/2019 4:27 PM CDT): As above. 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 She has required chronic H1 and H2 antihistamines as well as frequent corticosteroids (for management associated episodic angioedema). She has had one hospitalization almost requiring intubation for respiratory distress (fortunately avoided same). She has had allergy evaluation per Dr. Awa Ramírez with allergies documented to shellfish, nuts, eggs, and aero-allergens (pollens and pet dander) but did not respond to hyposensitization therapy. She notes severe arthralgias and myalgias associated with her outbreaks of urticaria. KENDALL, DNA antibody, RF , and CCP have all been negative. Given the persistence of single lesions > 24 hours the possibility of urticarial vasculitis must be considered. Her brother has urticaria as well raising possibility of familial urticarial syndrome. She does not note her lesions necessarily cold-induced or exacerbated by other physical changes. Will pursue further laboratory testing as per orders. If labs afford no further clues a biopsy of a fresh lesion to rule out Urticarial vasculitis may be a consideration. Class 3 severe obesity due t o excess calories with serious comorbidity and body mass index (BMI) of 50.0 to 59.9 in adult 06/30/2017 Assessment & Plan (06/06/2019 5:42 PM CDT): An optimal BMI (body mass index) is between 20 and 25. Encourage weight loss. Each pound of weight lost unloads 3-4 pounds per square inch pressure from weight bearing joints. Diet and exercise are the keys to weight management. Assessment & Plan (03/26/2019 4:27 PM CDT): An optimal BMI (body mass index) is between 20 and 25. Encourage weight loss. Each pound of weight lost unloads 3-4 pounds per square inch pressure from weight bearing joints. Diet and exercise are the keys to weight management. Assessment & Plan (06/30/2017 12:41 PM CDT): An optimal BMI (body mass index) is between 20 and 25. Encourage weight loss. Each pound of weight lost unloads 3-4 pounds per square inch pressure from weight bearing joints. Diet and exercise are the keys to weight management. Steroids have made weight management more difficult as patient reports steroid pulses for nearly one week each month for years. Surgical History Surgery Date Site/Laterality Comments SECTION 09/05/1987 - 09/04/1988 SECTION 09/05/1988 - 09/04/1989 SECTION 09/05/1990 - 09/04/1991 CHOLECYSTECTOMY 09/05/1990 - 09/04/1991 HYSTERECTOMY 09/05/1999 - 09/04/2000 2 partial excessive menstral and cycle & ovarian cysts Family History Medical History Relation Name Comments Urticaria Brother Alcohol abuse Father Cancer Father liver Hypertension Father Diabetes Mother's Sister Hypertension Paternal Grandmother Relation Name Status Comments Brother Father (Age 76) Mother's Sister Paternal Grandmother Social History Tobacco Use Types Packs/Day Years Used Date Smoking Tobacco: Never Smokeless Tobacco: Never Alcohol Use Standard Drinks/Week Comments No 0 (1 standard drink = 0.6 oz pur e alcohol) 2 glasses of caffeine Personal Safety Answer Date Recorded Getting School Help Needed Not on file 11/18 Comments No Sex and Gender Information Value Date Recorded Sex Assigned at Not on file 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 Gender Identity Not on file Sexual Orientation Not on file Obstetrics History Last Filed Vital Signs Vital Sign Reading Time Taken Comments Blood Pressure 130/74 06/06/2019 4:01 PM CDT Pulse 78 06/06/2019 4:01 PM CDT Temperature 36.8 C (98.2 F) 06/06/2019 4:01 PM CDT Respiratory Rate 18 06/06/2019 4:01 PM CDT Oxygen Saturation 95% 06/06/2019 4:01 PM CDT Inhaled Oxygen Concentration - - Weight 122 kg (269 lb) 06/06/2019 4:01 PM CDT Height 154.9 cm (5' 1 ) 06/06/2019 4:01 PM CDT Body Mass Index 50.83 06/06/2019 4:01 PM CDT Plan of Treatment Not on file Insurance [facility] H[facility]PPO Address: [place] [address] [facility] [employer] [facility]PPO Address: [facility] [address] [place] [address] Care Teams Phone Circuit Operator Relationship Specialty Start Date End Date Juan Antonio Loo MD PCP - General Internal Medicine 06/30/17 Gabe Medina MD [address] [place] [address] Consulting Physician Rheumatology 03/26/19 Awa Ramírez MD [address] [place] [address] Consulting Physician Allergy and Immunology 03/26/19
--- OUTSIDE RECORDS SUMMARY | 2025-01-10 08:51 | XMS_ITS | Clinical Summary ---
Author Organization [facility] Address [address] [place] [address] Care Team Providers Care Railcar Switchman Name Role Phone Edgard Olmstead MD Primary Care Provider [phone] Source Comments [facility],non-owned Affiliates and Associated Physician Practices is amultiple site organization consisting of ambulatory clinics and hospital sitesin [place], [place], [place] and [place]. This disclosure is being madepursuant to the Care Everywhere program and may not contain all information available regarding this patient. Last updated 18.[facility] Allergies Active Allergy Reactions Criticality Noted Date Comments Sulfa Drugs Rash Low 03/10/2012 Medications * Be aware that medications may not be up to date on this document. Alwaysverify current medications with the patient. albuterol HFA (PROAIR HFA) 108 (90 BASE) MCG/ACT inhaler 2 puff up to four times daily as needed. 3 Inhaler 3 02/27/2013 Active vitamin D2 (ERGOCALCIFEROL ) 58727 UNIT capsule Take one capsule every 30 days. 12 Cap 0 02/27/2013 Active cetirizine (ZYRTEC ALLERGY) 10 MG tablet Take 10 mg by mouth once daily. Active doxepin (SINEQUAN) 10 MG capsule Take 10 mg by mouth at bedtime. Active triamterene-hyd rochlorothiazid e (DYAZIDE) 37.5-25 MG capsule Take 1 Cap by mouth once daily. 30 Cap 1 11/26/2013 Active famotidine (PEPCID) 20 MG tablet Take 20 mg by mouth 2 times daily. Active predniSONE (DELTASONE) 20 MG tablet Take 20 mg by mouth once daily. Active Active Problems Problem Noted Date Diagnosed Date Elevated blood pressure 03/20/2012 Urticaria 03/20/2012 Impaired fasting glucose 03/20/2012 Vitamin D deficiency 03/20/2012 Morbid obesity 03/20/2012 Edema 03/20/2012 Family History Medical History Relation Name Comments Cancer Father Liver Lupus Father Hypertension Mother Relation Name Status Comments Father Mother Social History Tobacco Use Types Packs/Day Years Used Date Smoking Tobacco: Never Smokeless Tobacco: Never Alcohol Use Standard Drinks/Week Comments No 0 (1 standard drink = 0.6 oz pur e alcohol) Comments No Sex and Gender Information Value Date Recorded Sex Assigned at Not on file 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 Gender Identity Not on file Sexual Orientation Not on file Last Filed Vital Signs Vital Sign Reading Time Taken Comments Blood Pressure 130/55 02/01/2014 1:49 PM CDT Pulse 74 02/01/2014 1:49 PM CDT Temperature 37.7 C (99.8 F) 11/13/2013 2:28 PM CDT Respiratory Rate 18 05/10/2013 11:52 AM CDT Oxygen Saturation 98% 05/10/2013 11:52 AM CDT room air Inhaled Oxygen Concentration - - Weight 114.8 kg (253 lb) 02/01/2014 1:49 PM CDT Height 152.4 cm (5') 02/01/2014 1:49 PM CDT Body Mass Index 49.41 02/01/2014 1:49 PM CDT Plan of Treatment Health Maintenance Due Date Last Done Comments BONE DENSITY TESTING 1957 COLOGUARD (AGES 45-75) - COL ON CA SCREENING 1957 COLON MONITORING 1957 COLONOSCOPY - COLON CA SCREENING 1957 CT COLONOGRAPHY - COLON CA SCREENING 1957 Colorectal Cancer Screening 1957 FIT - COLON CA SCREENING 1957 FLEX SIG - COLON CA SCREENING 1957 MAMMOGRAM 1957 HEPATITIS C SCREENING 03/09/1975 DTAP/TDAP/TD VACCINES (1 - Tdap) 1976 PNEUMOCOCCAL VACCINE 50+ (1 of 1 - PCV) 2007 ZOSTER VACCINE (1 of 2) 2007 LIPID TESTING 03/10/2017 03/10/2012 Respiratory Syncytial Virus (RSV) Vaccine Pt: or over 60 yrs (1 - Risk 60-74 years 1-dose series) 2017 COVID-19 VACCINE (2023-2 5 season) 2024 DEPRESSION SCREENING 09/05/2024 INFLUENZA VACCINE (Season Ended) 2025 HEPATITIS B VACCINE Aged Out No longe r eligible based on patient's age to complete this topic HIB VACCINE Aged Out No longer eligi ble based on patient's age to complete this topic HPV VACCINE Aged Out No longer eligi ble based on patient's age to complete this topic MENINGOCOCCAL (Group B) VACC INE SHARED DECISION-MAKING Aged Out No longer eligibl e based on patient's age to complete this topic MENINGOCOCCAL GROUPS A/C/Y/W VACCINE Aged Out No longer eligible b ased on patient's age to complete this topic Procedures Procedure Name Priority Date/Time Associated Diagnosis Comments LIPID PROFILE Routine 03/10/2012 10:34 AM CDT Lipid screening from Last 3 Months or Most Recently Relevant to Health Maintenance Results * (ABNORMAL) LIPID PROFILE (03/10/2012 10:34 AM CDT) Cholesterol 240(H) 100 - 199 mg/dL [facility] ACCOUNT BILL Triglycerides 187(H) 0 - 149 mg/dL [facility] ACCOUNT BILL HDL Cholesterol 41 >39 mg/dL [facility] ACCOUNT BILL Comment: According to ATP-III Guidelines, HDL-C >59 mg/dL is considered a negative risk factor for CHD. VLDL Calculated 37 5 - 40 mg/dL [facility] ACCOUNT BILL LDL Calculated 162(H) 0 - 99 mg/dL [facility] ACCOUNT BILL Blood specimen (specimen) BLOOD SPECIMEN / Unknown 03/10/2012 10:34 AM CDT 03/10/2012 5:19 PM CDT Narrative Resulting Agency Comment [facility] [place] [address] [facility] [id number] us Edgard Olmstead MD LAB - CHEMISTRY ORDERABLES Final Result [facility] ACCOUNT BILL [address] [place] [address] from Last 3 Months or Most Recently Relevant to Health Maintenance Insurance Care Teams Railcar Switchman Relationship Specialty Start Date End Date Edgard Olmstead MD PCP - General Family Medicine 02/29/12
--- OUTSIDE RECORDS SUMMARY | 2025-01-10 08:51 | XMS_ITS | Referral Summary ---
Author Organization [facility] Address [address] [place] [address] Care Team Providers Care Paper Mill Manager Name Role Phone Juan Antonio Loo MD Primary Care Provider Gabe Medina MD Unavailable Awa Ramírez MD Unavailable [phone] Allergies Active Allergy Reactions Criticality Noted Date [...] (06/08/2019): MRI Knee Right WO Contrast Order: [id number] Status: Final result Visible to patient: No [...] Hands Bilateral for Rheumatoid Arthritis (C) Order: [id number] Status: Final result Visible to patient: No [...] nearly one week each month for years. 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
--- OUTSIDE RECORDS SUMMARY | 2025-01-10 08:52 | XMS_ITS | Data Portability ---
Author Organization [place] - [facility] Topmission, Main Office Address [address] [place] [address] Assessment No assessment recorded. Plan of Treatment Reminders Order Date Submit Date Provider Last Modified By Organization Details Last Modified Time Details Appointments None recorded. Lab HbA1c (hemoglobin A1c), blood 2024 025 [facility] Outpatient Lab, [address] [place], [address], 5 04:15:35 lipid panel, serum 2024 025 [facility] Outpatient [facility], [address] [place], [address], 5 04:15:34 CMP, serum or plasma 2024 025 [facility] Outpatient [facility], [address] [place], [address], 5 04:15:34 TSH, serum or plasma 2024 025 [facility] Outpatient Lab, [address] [place], [address], 5 04:15:34 T4, free, serum 2024 025 [facility] Outpatient Lab, [address] [place], [address], 5 04:15:35 CBC w/ auto diff 2024 025 [facility] Outpatient Lab, [address] [place], [address], 5 04:15:35 lipid panel, serum 2023 024 [email or web address] [facility] Outpatient Lab, [address] [place], [address], 4 16:06:26 HbA1c (hemoglobin A1c), blood [id number] [place] [address] - Outpatient Lab, [address] [place], [address], 4 16:06:26 microalbumi n, urine [id number] [place] [address] Outpatient Lab, [address] [place], [address], 4 16:06:26 CBC w/ auto diff [id number] [place] [address] - Outpatient Lab, [address] [place], [address], 4 16:06:25 CMP, serum or plasma [id number] [place] [address] Outpatient Lab, [address] [place], [address], 4 16:06:26 vitamin D, 25-hydroxy, total, serum [id number] [place] [address] - Outpatient Lab, [address] [place], [address], 3 09:55:18 lipid panel, serum [id number] [place] [address] Outpatient Lab, [address] [place], [address], 3 09:55:18 CMP, serum or plasma [id number] [place] [address] Outpatient Lab, [address] [place], [address], 3 09:55:18 TSH, serum or plasma 2022 023 [id number] [facility] Outpatient Lab, [address] [place] [address], [address], 3 09:55:18 T4, free, serum 2022 023 [email or web address] [facility] Outpatient Lab, [address] [place] [address], [address], 3 09:55:18 HbA1c (hemoglobin A1c), blood 2022 023 [id number] [facility] Outpatient Lab, [address] [place] [address], [address], 3 09:55:18 microalbumi n, urine 2022 023 [email or web address] [facility] Outpatient Lab, [address] [place] [address], [address], 3 09:55:18 CBC w/ auto diff 2022 023 [email or web address] [facility] Outpatient Lab, [address] [place] [address], [address], 3 09:55:17 Referral None recorded. Procedures None recorded. Surgeries None recorded. Imaging None recorded. Medication Orders pantoprazol e 40 mg tablet,ramila yed release 2024 025 [facility]/Pharmacy #[id number], [address], [place], [address], 5 17:34:25 methylpredn isolone 4 mg tablets in a dose pack 2022 023 [email or web address] [facility] [address] [facility] [place], [address] [place], [address], 3 16:59:33 baclofen 10 mg tablet 2022 023 [email or web address] [facility] [address] [facility], [address] [place], [address], 16:57:05 Patient TargetsNo targets recorded. Patient Instructions Encounter Date Encounter Id Patient Instructions Last Modified By Organization Details Last Modified Time 02/23/2023 [id number] Low back strain -hypertension -hyperlipidemia - type 2 diabetes -obstructive sleep apnea. Clinically stable otherwise. Will give a trial of a Medrol Dosepak and some baclofen 10 mg q.i.d.. If no improvement may need to consider doing radiographic studies and possible physical therapy. May need even consider the possibility of an MRI if symptoms not improved. Continue on current Rx otherwise and follow-up in three months Not available 02/23/2023 15:08:30 06/06/2023 [id number] Central hypertension, hyperlipidemia, type 2 diabetes, obstructive sleep apnea and morbid obesity all clinically stable. Check blood work consisting of CBC, CMP, lipid, thyroid, hemoglobin A1c, microalbumin and vitamin-D level. Is due for mammogram. Will continue on current Rx follow-up in six months. Menu on current Rx. FDA recommendations of a influenza, RSV, COVID, pneumococcal immunizations strongly advised. Portions of the record may have been created with voice recognition software. Occasional wrong-word or pidfr-c-eefs substitutions may have occurred due to the inherent limitations of voice recognition software. Read the chart carefully and recognize, using context, where substitutions have occurred. Next Appt: 6 Months Approximate Date: 12/03/2023 Not available 06/06/2023 17:11:39 12/05/2023 [id number] risk assessment* [email or web address] Not availabl e 12/05/2023 17:11:25 Personalized Hea lt Plan and Screening Recommendations Advance Directives - Do you have one? Advance Directives - Do we have your advance directive on file in your health record? Primary Prevention/Interven tion (prevents or decreases the chance of common diseases from occurring) Smoking Risk: Non Smoker Alcohol Misuse Screening: Negative Weight: Appropriate Overwei ght continue your current weight loss efforts try to lose 5% of your body weight try to lose 10% of your body weight Physical activity: Need more exercise/physical activity Nutrition: Good Average Fall Risk (screened today): Low Vaccines Pneumococcal: Ordered Recommended today Recommended today, but you have declined Influenza: Your next one in the fall of this year Chronic Disease Risks Stroke: Low Risk Intermediate Risk I have no recommendations Act liban diagnosis, Continue current treatment plan Heart Attack: Low risk Intermediate Risk I have no recommendations Act liban diagnosis, Continue current treatment plan Clogging of the Arteries: Low risk Intermediate Risk I have no recommendations Act liban diagnosis, Continue current treatment plan Diabetes: Low Risk Intermediate Risk Active diagnosis, Continue current treatment plan Secondary Prevention/Interven tion (detects treatable diseases before they may cause symptoms, disability, or ) Breast Cancer Screening with mammogram: Your next mammogram: Ordered Recommended today Recommended today, but you have declined Cervical/Uterine/Ov maylin Cancer Screening: Your next PAP/pelvic in: 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 Follow-up for hypertension, hyperlipidemia, type 2 diabetes, obstructive sleep apnea, asthma and morbid obesity. Will check blood work in the form of CBC, CMP, hemoglobin A1c, lipid panel and microalbumin. Continue on current Rx follow-up in six months. Next Appt: 6 Months Approximate Date: 06/02/2024 Portions of the record may have been created with voice recognition software. Occasional wrong-word or sveyf-h-dbwi substitutions may have occurred due to the inherent limitations of voice recognition software. Read the chart carefully and recognize, using context, where substitutions have occurred. [email or web address] Not available 12/05/2023 17:11:08 07/11/2024 [id number] Follow-up for essential hypertension, hyperlipidemia, chronic idiopathic urticaria, obstructive sleep apnea as well as morbid obesity. Will continue on current Rx does need a mammogram and bone density scan. Continue on current Rx and follow-up in six months Additional Orders - Directives - Recommendations 1. Mammogram 2. Bone density scan Follow Up: 6 Months Approximate Date: 01/07/2025 Portions of the record may have been created with voice recognition software. Occasional wrong-word or onnei-q-qahf substitutions may have occurred due to the inherent limitations of voice recognition software. Read the chart carefully and recognize, using context, where substitutions have occurred. Not available 07/11/2024 17:21:29 01/03/2025 [id number] Follow-up essent ial hypertension, hyperlipidemia, type 2 diabetes, GERD without esophagitis as well as morbid obesity. Has been bothered by increasing degrees of GERD or reflux. Has tried ybow-wnr-ktkkndh omeprazole with little in the way of any improvement. Will start on some pantoprazole 40 mg once daily. Has also had problems with some pain and discomfort in the right neck area. There is a proximally one inch by 1 in firm lymph node in the right submandibular area. No other systemic complaints are noted. Will need further diagnostic evaluation of the lymph node. Additional Orders - Directives - Recommendations 1. Need a CT scan of the neck with contrast for right submandibular lymph node Follow Up: 4 Weeks Approximate Date: 01/31/2025 Portions of record are template driven. When necessary additional context will be provided. Additionally some portions have been created with voice recognition software. Occasional wrong-word or htwxc-m-tryv substitutions may have occurred due to the inherent limitations of voice recognition software. Read the chart carefully and recognize, using context, where substitutions may have occurred. Created: Juan Antonio Loo M.D. 01.03.2025 04:34 PM [email or web address] Not available 01/03/2025 17:34:52 Reason for Referral None Reported. Results Created Date Observation Date Name Description Value Unit Range Abnormal Flag Note LastModifiedBy Organization Detail LastModifiedTime 07/15/2007/15/2023 CBC/C OMPLE TE BLD COUNT W/DIF F white blood cells 9.1 x10'3 /uL 4.2-10 .8 Not Available [facility] (Lab) [address] [place], [address], 07/15/2023 12:33:56 07/15/20 23 07/15/2023 CBC/C OMPLE TE BLD COUNT W/DIF F red blood cells 4.51 x10'6 /uL 3.80-5 .20 Not Available [facility] (Lab) [address] [place], [address], 07/15/2023 12:33:56 07/15/2007/15/2023 CBC/C OMPLE TE BLD COUNT W/DIF F hemoglobin 12.5 g/dL 12.0-1 5.6 Not Available [facility] (Lab) [address] [place], [address], 07/15/2023 12:33:56 07/15/2007/15/2023 CBC/C OMPLE TE BLD COUNT W/DIF F hematocrit 40.2 % 35.7-4 5.7 Not Available [facility] (Lab) [address] [place], [address], 07/15/2023 12:33:56 07/15/2007/15/2023 CBC/C OMPLE TE BLD COUNT W/DIF F mean red cell volume 89.1 fL 82.0-9 9.0 Not Available [facility] (Lab) [address] [place], [address], 07/15/2023 12:33:56 07/15/2007/15/2023 CBC/C OMPLE TE BLD COUNT W/DIF F mean red cell hemoglobin 27.7 pg 27.0-3 3.0 Not Available [facility] (Lab) [address] [place], [address], 07/15/2023 12:33:56 07/15/2007/15/2023 CBC/C OMPLE TE BLD COUNT W/DIF F mean RBC HGB concentratio n 31.1 g/dL 31.0-3 6.0 Not Available [facility] (Lab) [address] [place], [address], 07/15/2023 12:33:56 11/06/24 2307/15/2023 CBC/C OMPLE TE BLD COUNT W/DIF F red cell distribution width 13.6 % 11.8-1 5.5 Not Available [facility] (Lab) [address] [place], [address], 07/15/2023 12:33:56 07/15/2007/15/2023 CBC/C OMPLE TE BLD COUNT W/DIF F platelets 294 x10'3 /uL 150-40 0 Not Available [facility] (Lab) [address] [place], [address], 07/15/2023 12:33:56 07/15/2007/15/2023 CBC/C OMPLE TE BLD COUNT W/DIF F mean platelet volume 9.9 fL 9.0-12 .4 Not Available [facility] (Lab) [address] [place], [address], 07/15/2023 12:33:56 07/15/2007/15/2023 CBC/C OMPLE TE BLD COUNT W/DIF F neutrophils 68.9 % 39.0-7 2.0 Not Available [facility] (Lab) [address] [place], [address], 07/15/2023 12:33:56 07/15/2007/15/2023 CBC/C OMPLE TE BLD COUNT W/DIF F lymphocytes 21.2 % 16.0-4 7.0 Not Available [facility] (Lab) [address] [place], [address], 07/15/2023 12:33:56 07/15/2007/15/2023 CBC/C OMPLE TE BLD COUNT W/DIF F monocytes 6.3 % 5.0-12 .0 Not Available [facility] (Lab) [address] [place], [address], 07/15/2023 12:33:56 07/15/2007/15/2023 CBC/C OMPLE TE BLD COUNT W/DIF F eosinophils 2.4 % 1.0-7. 0 Not Available [facility] (Lab) [address] [place], [address], 07/15/2023 12:33:56 07/15/2007/15/2023 CBC/C OMPLE TE BLD COUNT W/DIF F basophils 0.6 % 0.0-2. 0 Not Available [facility] (Lab) [address] [place], [address], 07/15/2023 12:33:56 07/15/2007/15/2023 CBC/C OMPLE TE BLD COUNT W/DIF F immature granulocytes 0.6 % 0.00-0 .50 high Not Available [facility] (Lab) [address] [place], [address], 07/15/2023 12:33:56 07/15/2007/15/2023 CBC/C OMPLE TE BLD COUNT W/DIF F neutrophils, absolute count 6.26 x10'3 /uL 1.5-8. 0 Not Available [facility] (Lab) [address] [place], [address], 07/15/2023 12:33:56 07/15/2007/15/2023 CBC/C OMPLE TE BLD COUNT W/DIF F lymphocytes, absolute count 1.92 x10'3 /uL 1.07-3 .43 Not Available [facility] (Lab) [address] [place], [address], 07/15/2023 12:33:56 07/15/2007/15/2023 CBC/C OMPLE TE BLD COUNT W/DIF F monocytes, absolute count 0.57 x10'3 /uL 0.29-0 .99 Not Available [facility] (Lab) [address] [place], [address], 07/15/2023 12:33:56 07/15/2007/15/2023 CBC/C OMPLE TE BLD COUNT W/DIF F eosinophils, absolute count 0.22 x10'3 /uL 0.02-0 .53 Not Available [facility] (Lab) [address] [place], [address], 07/15/2023 12:33:56 07/15/2007/15/2023 CBC/C OMPLE TE BLD COUNT W/DIF F basophils, absolute count 0.05 x10'3 /uL 0.01-0 .08 Not Available [facility] (Lab) [address] [place], [address], 07/15/2023 12:33:56 07/15/2007/15/2023 CBC/C OMPLE TE BLD COUNT W/DIF F immature granulocytes ,absolute 0.05 x10'3 /uL 0.00-0 .05 Not Available [facility] (Lab) [address] [place], [address], 07/15/2023 12:33:56 07/15/2007/15/2023 CBC/C OMPLE TE BLD COUNT W/DIF F nucleated red blood cells 0.0 % -0 Not Available [facility] (Lab) [address] [place], [address], 07/15/2023 12:33:56 07/15/2007/15/2023 CBC/C OMPLE TE BLD COUNT W/DIF F NRBC# 0.00 x10'3 /uL Not Available [facility] (Lab) [address] [place], [address], 07/15/2023 12:33:56 07/15/2007/15/2023 LIPID PANEL cholesterol 235 mg/dL 140-19 9 high NIH AFIA NSUS RECOM MENDA TION FOR USAMA STERO L: ADULT CHILD LOW RISK: <200 <170 BORDE RLINE : <200- 239 ----- HIGH RISK: >240 >200 Not Available [facility] (Lab) [address] [place], [address], 07/15/2023 12:54:22 07/15/2007/15/2023 LIPID PANEL triglyceride s 154 mg/dL 0-150 high NIH AFIA NSUS REPOR T RECOM MENDA TION FOR TRIGL YCERI MARGO: ADULT CHILD LOW RISK: <150 ----- BODER LINE: 150-1 99 ----- HIGH RISK: >200 ----- Not Available [facility] (Lab) [address] [place], [address], 07/15/2023 12:54:22 07/15/20 23 07/15/2023 LIPID PANEL HDL cholesterol 45 mg/dL 40- Not Available [facility] (Lab) [address] [place], [address], 07/15/2023 12:54:22 07/15/2007/15/2023 LIPID PANEL LDL cholesterol, calculated 159 mg/dL 0-130 high NIH AFIA NSUS REPOR T RECOM MENDA TIONS FOR LDL: ADULT CHILD LOW RISK <130 <110 (OPTI MAL LDL) <100 ----- BORDE RLINE : 130-1 59 ----- HIGH RISK: >160 >130 A TRIGL YCERI DE RESUL T >400 INVAL IDATE S THE CALCU LATIO N FOR LDL FRACT IONAT ION - THE LDL RESUL T WILL NOT BE REPOR VIRI. Not Available [facility] (Lab) [address] [place], [address], 07/15/2023 12:54:22 07/15/20 23 07/15/2023 COMPR EHENS LIBAN METAB OLIC PANEL sodium 138 mmol/ L 137-14 5 Not Available [facility] (Lab) [address] [place], [address], 07/15/2023 12:54:32 07/15/20 23 07/15/2023 COMPR EHENS LIBAN METAB OLIC PANEL potassium 4.1 mmol/ L 3.5-5. 1 Not Available [facility] (Lab) [address] [place], [address], 07/15/2023 12:54:32 07/15/2007/15/2023 COMPR EHENS LIBAN METAB OLIC PANEL chloride 106 mmol/ L 98-107 Not Available [facility] (Lab) [address] [place], [address], 07/15/2023 12:54:32 07/15/20 23 07/15/2023 COMPR EHENS LIBAN METAB OLIC PANEL carbon dioxide 28 mmol/ L 22-30 Not Available [facility] (Lab) [address] [place], [address], 07/15/2023 12:54:32 07/15/20 23 07/15/2023 COMPR EHENS LIBAN METAB OLIC PANEL anion gap 8.1 mmol/ L 14-22 low Not Available [facility] (Lab) [address] [place], [address], 07/15/2023 12:54:32 07/15/20 23 07/15/2023 COMPR EHENS LIBAN METAB OLIC PANEL glucose 98 mg/dL 70-99 Not Available [facility] (Lab) [address] [place], [address], 07/15/2023 12:54:32 07/15/20 23 07/15/2023 COMPR EHENS LIBAN METAB OLIC PANEL BUN 11 mg/dL 8-19 Not Available [facility] (Lab) [address] [place], [address], 07/15/2023 12:54:32 07/15/20 23 07/15/2023 COMPR EHENS LIBAN METAB OLIC PANEL creatinine 0.64 mg/dL 0.66-1 .25 low Not Available [facility] (Lab) [address] [place], [address], 07/15/2023 12:54:32 07/15/2007/15/2023 COMPR EHENS LIBAN METAB OLIC PANEL GFR >60 Refer ence Range : Otis ge GFR Healt hy Adult : >60 mL/mi n/1.7 3 m2 Chron ic Kidne y Disea se: 15-60 mL/mi n/1.7 3 m2 Kidne y Failu re: <15/m L/min /1.73 m2 www.n iddk. [facility].g ov The MDRD study equat ion has not been valid ated in child aleksey <18 years of age; pregn ant women ; the elder ly >85 years of age; or in some racia l or ethni c subgr oups, such as Hiscamilo nics. Outsi de the valid ated judy eters , estim ated GFR is less accur ate, requi ring clini gama judgm ent on a case- by-ca se basis . Clini gama inter preta tion for other races and ages must be made by the clini asia. The MDRD study equat ion has not been valid ated for the evalu ation of serum creat inine relat ed to nutri julita l statu s or medic ation usage . For perso ns <18 years of age, a pedia tric GFR calcu lator is avail able on the [facility] websi te: https ://jarvis myles.o rg/pr ofess ional s/kdo qi/gf r_cal culat or Not Available [facility] (Lab) [address] [place], [address], 07/15/2023 12:54:32 07/15/2007/15/2023 COMPR EHENS LIBAN METAB OLIC PANEL alkaline phosphatase 91 U/L 38-126 Not Available [facility] (Lab) [address] [place], [address], 07/15/2023 12:54:32 07/15/20 23 07/15/2023 COMPR EHENS LIBAN METAB OLIC PANEL alanine aminotransfe rase 14 U/L 0-35 Not Available [facility] (Lab) [address] [place], [address], 07/15/2023 12:54:32 07/15/2007/15/2023 COMPR EHENS LIBAN METAB OLIC PANEL aspartate aminotransfe rase 15 U/L 15-37 Not Available [facility] (Lab) [address] [place], [address], 07/15/2023 12:54:32 07/15/2007/15/2023 COMPR EHENS LIBAN METAB OLIC PANEL bilirubin, total 0.40 mg/dL 0.20-1 .30 Not Available [facility] (Lab) [address] [place], [address], 07/15/2023 12:54:32 07/15/2007/15/2023 COMPR EHENS LIBAN METAB OLIC PANEL calcium 9.2 mg/dL 8.4-10 .2 Not Available [facility] (Lab) [address] [place], [address], 07/15/2023 12:54:32 07/15/2007/15/2023 COMPR EHENS LIBAN METAB OLIC PANEL total protein 6.4 g/dL 6.3-8. 2 Not Available [facility] (Lab) [address] [place], [address], 07/15/2023 12:54:32 07/15/2007/15/2023 COMPR EHENS LIBAN METAB OLIC PANEL albumin 3.5 g/dL 3.0-4. 4 Not Available [facility] (Lab) [address] [place], [address], 07/15/2023 12:54:32 07/15/20 23 07/15/2023 COMPR EHENS LIBAN METAB OLIC PANEL globulin 2.9 g/dL 2.6-4. 2 Not Available [facility] (Lab) [address] [place], [address], 07/15/2023 12:54:32 07/15/2007/15/2023 COMPR EHENS LIBAN METAB OLIC PANEL A/G ratio 1.2 ratio 1.0-2. 0 Not Available [facility] (Lab) [address] [place], [address], 07/15/2023 12:54:32 07/15/2007/15/2023 T4 FREE free T4 1.04 NG/dL 0.78-2 .19 Not Available [facility] (Lab) [address] [place], [address], 07/15/2023 12:56:24 07/15/2007/15/2023 MICRO ALBUM IN RANDO M URINE microalbumin , urine <6.0 mg/L 0.0-16 .6 Not Available [facility] (Lab) [address] [place], [address], 07/15/2023 12:57:10 07/15/2007/15/2023 VITAM IN D 25-HY DROXY vd25oh <12.8 NG/mL 30-100 low Vitam in D Statu s: Defic ient: <20 ng/mL Insuf ficie nt: 20-29 ng/mL Suffi cient : 30-10 0 ng/mL Not Available [facility] (Lab) [address] [place], [address], 07/15/2023 12:58:18 07/15/2007/15/2023 TSH thyroid-stim ulating hormone 2.910 uIU/m L 0.465- 4.680 Not Available [facility] (Lab) [address] [place], [address], 07/15/2023 13:16:28 07/15/2007/15/2023 HEMOG LOBIN A1C HA1C 5.6 % 4.0-6. 0 Diabe vy Scree shwetha Crite slade: <5.7% Consi stent with absen ce of diabe vy 5.7-6 .4% Consi stent with incre ased risk for diabe vy (pred iabet es) >OR=6 .5% Consi stent with diabe vy REFER ENCE: Diabe vy Care 39(Ibanez ppl.1 ):s13 -s22 Not Available [facility] (Lab) [address] [place], [address], 07/15/2023 14:26:07 02/15/20 24 02/15/2024 HEMOG LOBIN A1C HA1C 5.7 % 4.0-6. 0 Diabe vy Scree shwetha Crite slade: <5.7% Consi stent with absen ce of diabe vy 5.7-6 .4% Consi stent with incre ased risk for diabe vy (pred iabet es) >OR=6 .5% Consi stent with diabe vy REFER ENCE: Diabe vy Care (Ibanez ppl.1 ):s13 -s22 Not Available [facility] (Lab) [address] [place], [address], 02/15/2024 17:14:23 03/14/20 24 03/14/2024 SEDIM ENTAT ION RATE erythrocyte sedimentatio n rate 17 mm/HR 0-20 Not Available [facility] (Lab) [address] [place], [address], 03/14/2024 16:57:08 04/13/20 23 04/13/2023 XR, ankle , 3 or more view [facility] [address] [place] [address] Patien t Name: ELLA HU ion #: [id number] Sex: F : 1954 0 Dictat ed By: Layo Hansen ing Physic sandhya: LYNNE LOO CE Orderi ng Physic sandhya: LYNNE LOO CE Exam Date: 2022 10:07 AM Exam Name: XR ANKLE LT 3V+ Admitt ing Diagno sis(es ): CLINIC AL INFORM ATION: Medial left ankle pain. TECHNI QUE: 3 views of the left ankle were obtain ed, includ ing AP, latera l, and obliqu e views. COMPAR CLARI: No prior studie s. FINDIN GS: No acute fractu re or disloc ation. Talar dome is smooth . No wideni ng at the ankle mortis e. There is spurri ng at the inferi or aspect of the latera l malleo dwayne and at the latera l aspect of the talus, may be sequel ae of arthri tic change s and/or prior injury . Promin ent planta r calcan eal spur. Mild spurri ng at the territory business manager ior calcan eus at the Achill es tendon insert ion. Dorsal spurri ng at the talona vicula r joint and cuneon avicul ar joint. Small chroni c appear ing ossicl e adjace nt to the base of the fifth metata rsal, may be sequel ae of old avulsi on injury . Adjace nt soft tissue s are unrema rkable . IMPRES SHAREE: No eviden ce of acute bony abnorm ality. Nonacu te findin gs as detail ed above. Electr onical ly Signed by: Layo graham at 2022 13:10: 03 PM Page 1 [email or web address] [facility] (Imaging) [address] [place], [address], 05/03/2023 09:27:58 Result Notes None recorded. Problems Name Problem SNOMED Code Status Onset Date Resolution Date Notes Provider Name and Address Organization Details Recorded Time Hyperchol esterolem ia 32106481 Completed Not Available [facility] 3 12:51:28 Acute sinusitis 35326453 Active 2021 Not Available [facility] 3 12:49:38 Pain of right shoulder joint 50969381828 245287 Active 2021 Not Available [facility] 3 12:49:38 History of migraine 080043140 Active Not Available [facility] 3 12:49:38 Asthma 062392396 Active Not Available [facility] 3 12:49:38 Morbid obesity 260133776 Active 2021 Not Available [facility] 3 12:49:38 Pure hyperchol esterolem ia 811171998 Active 2019 Not Available [facility] 3 12:49:38 Anemia 392988110 Active 2021 Not Available [facility] 3 12:49:38 Pain in axilla 330895145 Active 2021 Not Available [facility] 3 12:49:38 Finding of body mass index 664102309 Active 2021 Not Available [facility] 3 12:49:38 Chronic idiopathi c urticaria 868000266 Active 2016 Not Available [facility] 3 12:49:38 Lymphaden opathy 08513097 Active 2021 Not Available [facility] 3 12:49:38 Type 2 diabetes mellitus without complicat ion 582107586 Active 2019 Not Available [facility] 3 12:49:38 Osteoarth ritis 355408274 Active 2018 Not Available [facility] 3 12:49:38 Angioedem a 73955322 Active 2017 Not Available [facility] 3 12:49:38 Acute urinary tract infection 743711806 Active 2021 Not Available [facility] 3 12:49:38 Anxiety 23232936 Active 2021 Not Available [facility] 3 12:49:38 Essential hypertens ion 84280902 Active Not Available [facility] 3 12:49:38 Rosacea, papular type 59487851 Active 2021 Not Available [facility] 3 12:49:38 Obstructi ve sleep apnea syndrome 92354090 Active Not Available [facility] 3 12:49:38 Low back pain 583064106 Active 2022 Not Available [facility] 3 12:49:38 Pain of left ankle joint [id number] 730634 Active 2022 Not Available [facility] 3 12:49:38 Vitamin D deficienc y 49072425 Active 2022 Not Available [facility] 3 12:49:38 Fatigue 54495528 Active 2023 Nay Flores christa, [employer] 4 15:58:31 Conjuncti vitis 6182978 Active 2024 Juan Antonio Loo MD [address], [place], [address] , [employer] 5 14:38:37 Type 2 diabetes mellitus 09002175 Active 2024 Juan Antonio Loo MD [address], [place], [address] , [employer] 5 17:27:05 Gastroeso phageal reflux disease without esophagit is 857621863 Active 2024 Juan Antonio Loo MD [address], [place], [address] , [employer] 5 17:27:48 Localized enlarged lymph nodes 924116238 Active 2024 Samira goodwin, [place] [facility] 5 11:56:09 Notes:Medical History: Anxie ty Migraine headaches Urticaria Angioedema Rhinosinusitis Mod persistent asthma on Xolair Obesity with mod OSAHS, AHI = 15, 04/02/22, on CPAP c/o IVRC Hypertension Mixed hyperlipidemia T2DM JOEY B12 deficiency PLMD OA Problem Notes None recorded. Procedures Surgical History None recorded. Imaging Results Imaging Date Name Status LastModified by Organiz ation Details LastModified Time 04/13/2023 XR, ankle, 3 or more view completed [email or web address] [facility] (Imaging) [address], [place], [address], 05/03/2023 09:27:58 Procedure Notes None recorded. Medical Equipment None Reported. Allergies Allergen ID Allergen Name Allergen Category Reaction Reaction Severity Criticality Documentation Date Start Date Code Code System Note Provider Name and Address Organization Details Recorded Time 08396 Substance with sulfonami de structure and antibacte rial mechanism of action (substanc e) medicatio n rash Not available Not available 11/03/2022 02124 8003 SNOMED Not Available [facility] 3 12:59:36 90001 metformin medicatio n nausea Not available Not available 11/03/2022 6809 RxNorm Not Available [facility] 3 12:59:37 19676 Aleve medicatio n Not available Not available Not available 11/03/2022 51046 1 RxNorm Not Available [facility] 3 12:59:37 Medications Name Sig Start Date Stop Date Status Note LastModified by Organization Details LastModified Time Singulair 10 mg tablet Take 1 tablet every day by oral route. 08/24 completed Not Available Not Available Not Available diclofenac 75 mg-misopros abilio 200 mcg tablet,imme diate,delay ed release TAKE 1 TABLET BY MOUTH TWICE A DAY 04/05 completed Not Available Not Available Not Available Zocor 20 mg tablet Take 1 tablet every day by oral route. 03/17 completed Not Available Not Available Not Available cyclobenzap rine 10 mg tablet Take 1 tablet three times daily 08/24 completed Not Available Not Available Not Available amoxicillin 500 mg capsule Take 1 capsule every 8 hours by oral route. active Not Available Not Available No t Available metformin 500 mg tablet Take 1 tablet twice a day by oral route. 03/26 completed Not Available Not Available Not Available Tylenol-Cod eine #4 300 mg-60 mg tablet Take 1 tablet every 6 hours by oral route. 06/11 completed Not Available Not Available Not Available prednisone 10 mg tablet TAKE 5 TABLETS BY MOUTH EVERY DAY active Not Available Not Available No t Available doxycycline hyclate 100 mg capsule 12/04 completed Not Available Not Available Not Available atorvastati n 20 mg tablet Take 1 tablet every day by oral route. active Not Available Not Available No t Available fluconazole 150 mg tablet TAKE 1 TABLET BY MOUTH EVERY DAY active Not Available Not Available No t Available benzonatate 200 mg capsule Take 1 capsule 3 times a day by oral route. 06/06 completed Not Available Not Available Not Available cimetidine 400 mg tablet Take 1 tablet twice a day by oral route. 04/05 completed Not Available Not Available Not Available Ceftin 250 mg tablet Take 1 tablet every 12 hours by oral route. 03/17 completed Not Available Not Available Not Available famotidine 40 mg tablet Take 1 tablet every day by oral route. active Not Available Not Available No t Available prednisone 20 mg tablet half tablet daily or as directed 03/17 completed Not Available Not Available Not Available Zithromax Z-Jef 250 mg tablet TAKE 2 TABLETS (500 MG) BY ORAL ROUTE ONCE DAILY FOR 1 DAY THEN 1 TABLET (250 MG) BY ORAL ROUTE ONCE DAILY FOR 4 DAYS 11/23 completed Not Available Not Available Not Available triamterene 37.5 mg-hydrochl orothiazide 25 mg capsule Take 1 capsule every day by oral route. active Not Available Not Available No t Available lorazepam 0.5 mg tablet TAKE 1 TABLET BY MOUTH THREE TIMES A DAY NEEDED FOR ANXIETY 11/23 completed Not Available Not Available Not Available cimetidine 200 mg tablet Take 2 tablets every day by oral route at bedtime. 08/24 completed Not Available Not Available Not Available baclofen 10 mg tablet TAKE 1 TABLET BY MOUTH FOUR TIMES A DAY 12/04 completed Not Available Not Available Not Available Xanax 0.25 mg tablet Take 1 tablet 3 times a day by oral route. 2014 active Not Available Not Available Not Avai lable cephalexin 500 mg capsule TAKE 1 CAPSULE BY MOUTH THREE TIMES A DAY 12/04 completed Not Available Not Available Not Available pantoprazol e 40 mg tablet,ramila yed release Take 1 tablet every day by oral route. 2024 active Not Available Not Available Not Avai lable cyanocobala min (vit B-12) 1,000 mcg/mL injection solution Inject 1 mL every month by subcutane ous route. active Not Available Not Available No t Available Cipro 500 mg tablet Take 1 tablet twice a day by oral route for 7 days. 09/13 completed Not Available Not Available Not Available tobramycin 0.3 % eye drops Instill 1 drop(s) EVERY 4 HOURS by ophthalmi c route while awake 2024 active Not Available Not Available Not Avai lable clotrimazol e-betametha sone 1 %-0.05 % topical cream APPLY TO THE AFFECTED AND SURROUNDI NG AREAS OF SKIN BY TOPICAL ROUTE 2 TIMES PER DAY IN THE MORNING AND EVENING FOR 2 WEEKS 06/11 completed Not Available Not Available Not Available zafirlukast 20 mg tablet Take 1 tablet twice a day by oral route. active Not Available Not Available No t Available Valtrex 1 gram tablet Take 1 tablet 3 times a day by oral route. 06/11 completed Not Available Not Available Not Available triamterene 37.5 mg-hydrochl orothiazide 25 mg tablet once daily 11/28 completed Not Available Not Available Not Available mupirocin 2 % topical ointment APPLY A SMALL AMOUNT TO THE AFFECTED AREA BY TOPICAL ROUTE 3 TIMES PER DAY 11/28 completed Not Available Not Available Not Available Levaquin 500 mg tablet Take 1 tablet every 24 hours by oral route. 03/17 completed Not Available Not Available Not Available ergocalcife rol (vitamin D2) 1,250 mcg (50,000 unit) capsule Take 1 capsule every week by oral route. active Not Available Not Available No t Available azelastine 137 mcg (0.1 %) nasal spray Ideal 2 sprays twice a day by intranasa l route. active Not Available Not Available No t Available Creekside 7.5 mg-325 mg tablet Take 1 tablet every 6 hours by oral route. 08/24 completed Not Available Not Available Not Available methylpredn isolone 4 mg tablets in a dose pack TAKE 6 TABLETS ON DAY 1 DIRECTED ON PACKAGE AND DECREASE BY 1 TAB EACH DAY FOR A TOTAL OF 6 DAYS 06/06 completed Not Available Not Available Not Available albuterol sulfate HFA 90 mcg/actuati on aerosol inhaler INHALE 2 PUFFS BY MOUTH 4 TIMES A DAY 2024 active Not Available Not Available Not Avai lable Cipro 250 mg tablet Take 1 tablet every 12 hours by oral route for 5 days. 03/17 completed Not Available Not Available Not Available cefdinir 300 mg capsule Take 1 capsule every 12 hours by oral route. 02/23 completed Not Available Not Available Not Available amoxicillin 875 mg-potassiu m clavulanate 125 mg tablet TAKE 1 TABLET BY MOUTH EVERY 12 HOURS 07/11 completed Not Available Not Available Not Available moxifloxaci n 0.5 % eye drops INSTILL 1 DROP INTO AFFECTED EYE(S) EVERY 8 HOURS FOR 7 DAYS active Not Available Not Available No t Available Xolair 150 mg subcutaneou s solution Inject 2.4 mL every 4 weeks by subcutane ous route. 06/08 completed Not Available Not Available Not Available escitalopra m 5 mg tablet TAKE 1 TABLET BY MOUTH EVERY DAY 06/06 completed Not Available Not Available Not Available epinastine 0.05 % eye drops INSTILL 1 DROP INTO BOTH EYES BY OPHTHALMI C ROUTE 2 TIMES PER DAY active Not Available Not Available No t Available Horizon Nasal Cpap System device 06/08 completed Not Available Not Available Not Available nitrofurant oin monohydrate /macrocryst als 100 mg capsule TAKE 1 CAPSULE BY MOUTH EVERY 12 HOURS 01/03 completed Not Available Not Available Not Available metronidazo le 1 % topical gel APPLY TO AFFECTED AREA EVERY DAY RUB IN GENTLY AND COMPLETEL Y active Not Available Not Available No t Available Flonase 03/17 completed Not Available Not Available Not Available Xolair 03/11 completed Not Available Not Available Not Available epinastine as directed 12/18 completed Not Available Not Available Not Available Xyzal 5 mg tablet Take 1 tablet every day by oral route. 2021 active Not Available Not Available Not Avai lable Xyzal ONE TABLET BID 03/11 completed Not Available Not Available Not Available Zyrtec 10 mg disintegrat ing tablet Take 2 tablets every day by oral route. 08/24 completed Not Available Not Available Not Available OneTouch Verio test strips USE TO TEST BLOOD GLUCOSE DAILY 06/01 completed Not Available Not Available Not Available Invokana 100 mg tablet Take 1 tablet every day by oral route. 03/25 completed Not Available Not Available Not Available Xolair 150 mg/mL subcutaneou s syringe INJECT 150 MG BY SUBCUTANE OUS ROUTE EVERY 4 WEEKS active Not Available Not Available No t Available Symjepi 0.3 mg/0.3 mL injection syringe INJECT 0.3MG INTRAMUSC ULARLY ONCE NEEDED FOR ANAPHYLAX IS 04/05 completed Not Available Not Available Not Available Flowflex COVID-19 Antigen Home Test kit 11/23 completed Not Available Not Available Not Available Vitals Date Recorded Body height Body mass index (BMI) Body weight Heart rate Body temperature Oxygen saturation Oxygen saturation in Arterial blood by Pulse oximetry Systolic blood pressure Diastolic blood pressure Provider Name and Address Organization Details Last Updated DateTime 3 153.67 cm 49.6 kg/m2 090771. 83 g 77 /min 97 [degF] 97 % 97 % 120 mm[Hg] 78 mm[Hg] Nay [employer] [employer] [facility] 3 14:56:08 Date Recorded Body height Body mass index (BMI) Body weight Heart rate Body temperature Oxygen saturation Oxygen saturation in Arterial blood by Pulse oximetry Systolic blood pressure Diastolic blood pressure Provider Name and Address Organization Details Last Updated DateTime 3 153.67 cm 50 kg/m2 381193. 81 g 88 /min 97 [degF] 98 % 98 % 138 mm[Hg] 82 mm[Hg] Nay [facility] 3 16:59:00 Date Recorded Body height Body mass index (BMI) Body weight Heart rate Body temperature Oxygen saturation Oxygen saturation in Arterial blood by Pulse oximetry Systolic blood pressure Diastolic blood pressure Provider Name and Address Organization Details Last Updated DateTime 4 153.67 cm 50.9 kg/m2 458626. 98 g 73 /min 97 [degF] 97 % 97 % 144 mm[Hg] 80 mm[Hg] Nay Flores [employer] 4 16:56:19 Date Recorded Body height Body mass index (BMI) Body weight Heart rate Body temperature Oxygen saturation Oxygen saturation in Arterial blood by Pulse oximetry Systolic blood pressure Diastolic blood pressure Provider Name and Address Organization Details Last Updated DateTime 4 153.67 cm 51.7 kg/m2 083680. 35 g 85 /min 97 [degF] 97 % 97 % 128 mm[Hg] 82 mm[Hg] ALFONSO Vargas [employer] [facility] 4 17:08:35 Date Recorded Body height Body mass index (BMI) Body weight Heart rate Body temperature Oxygen saturation Oxygen saturation in Arterial blood by Pulse oximetry Systolic blood pressure Diastolic blood pressure Provider Name and Address Organization Details Last Updated DateTime 5 153.67 cm 51.6 kg/m2 534517. 55 g 91 /min 97 [degF] 95 % 95 % 132 mm[Hg] 74 mm[Hg] Nay Flores [place] - [facility] [place] [employer] [facility] 5 17:12:12 Social History Question Answer Notes LastModified by Organizat ion Details LastModified Time In The 14 Days Before Symptom Onset, Have You Had Close Contact With A Laboratory-confirme d COVID-19 While That Case Was Ill? No [id number] Information not available 11/03/2022 In The 14 Days Before Symptom Onset, Have You Had Close Contact With A Person Who Is Under Investigation For COVID-19 While That Person Was Ill? No [id number] Information not available 11/03/2022 Have You Recently Traveled Abroad? No [id number] Information not available 11/03/2022 Sex: Unknown Functional Status None recorded. Mental Status None recorded. Family History Nothing Reported Notes:Mother living at 83 wi th mild hypertension Father 73 with ASHD and CABG One brother and one sister in good health. PGF-Lupus Maternal Aunt-RA Medical History Condition Response NERVE DISEASE N BLINDNESS N RHEUMATIC FEVER N KIDNEY STONES N BLADDER PROBLEMS N MRSA N OTHER # 1 N POLIO N LUNG DISEASE/DISORDER N HISTORY OF DRUG ABUSE N RADIATION / CHEMOTHERAPY N COPD N Other # 2 N BLOOD DISEASES N EAR OR HEARING PROBLEMS N MUMPS N SHINGLES N BOWEL PROBLEMS N DEPRESSION (INCLUDING POST ) N STROKE/TIA N ULCERS N BENIGN PROSTATIC HYPERPLASIA N MEASLES N HYPOTENSION N MYOCARDIAL INFARCTION N OBESITY N GERD/NAUSEA N ANEURYSM N URINARY/BLADDER/KIDNEY PROBLEMS N CORONARY ARTERY DISEASE (CAD) N ADDICTION CONCERNS N ENDOMETRIOSIS N Impotence N USE OF BLOOD THINNERS N SKIN PROBLEMS N GASTROINTESTINAL DISORDER N PERIPHERAL VASCULAR DISEASE N MUSCLE,JOINT OR BONE PROBLEMS N GASTROINTESTINAL BLEEDING N BLOOD CLOTS N ASTHMA N CATARACTS N ERECTILE DYSFUNCTION N VARICOSITIES N GI PROBLEMS N Low Testosterone N INFERTILITY N AIDS/HIV N CHEMOTHERAPY / RADIATION N LIVER DISEASE N MALE HYPOGONADISM N HYPERTENSION Y Deficiency N TOURETTE'S N ANXIETY DISORDER N BLOOD TRANSFUSION N ANEMIA/BLOOD DISORDER N CHRONIC EAR INFECTIONS N BRONCHITIS N TUBERCULOSIS N GLAUCOMA N FOOT PROBLEM N DIVERTICULITIS N CHICKENPOX N SLEEP APNEA Y INFECTIOUS DISEASE N HEART ARRHYTHMIA N PROSTATE N INSOMNIA N HIGH CHOLESTEROL / HYPERLIPIDEMIA Y HYPERTHYROIDISM N EYE PROBLEMS N EDEMA N CHRONIC PAIN SYNDROME N HYPOTHYROIDISM N CAROTID BLOCKAGE N CONSTIPATION N BACK / NECK PROBLEMS N HAVE YOU BEEN HOSPITALIZED OR SEEN IN [facility] ER IN THE PAST YEAR ? N ATHEROSCLEROSIS N BREAST PROBLEMS N DIALYSIS N ECZEMA N OSTEOPOROSIS N ARTHRITIS N NO SIGNIFICANT PAST MEDICAL HISTORY N APPENDICITIS N DIABETES, TYPE Y BAD TEETH N ENT N HEARTBURN / REFLUX N AUTISM SPECTRUM DISORDER (ASD) N HEPATITIS / LIVER DISEASE N GOUT N SLEEP DISORDER N ALZHEIMER'S DISEASE N Brain Problems N HERPES N DEMENTIA N HEADACHES/MIGRAINES Y SEIZURES/EPILEPSY N VASCULAR DISEASE N PACEMAKER N Blood Disorder N DIZZINESS N HEART DISEASE/HEART PROBLEMS N KIDNEY DISEASE N MULTIPLE SCLEROSIS N CARDIAC ARRHYTHMIA N CANCER: SPECIFY N ATRIAL FIBRILLATION N Gall Stones N PULMONARY EMBOLISM N AUTOIMMUNE DISEASE N Gynecological HistoryNo gynecological history recorded. Obstetrics History GPAL:G 0 P 0 0 0 0 Immunizations Vaccine Type Date Status Note Provider Nam e and Address Organization Details Recorded Time COVID-19, mRNA, LNP-S, PF, 100 mcg/0.5mL dose or 50 mcg/0.25mL dose 1 completed Not Available [facility] 06/28/2023 07:45:30 COVID-19, mRNA, LNP-S, PF, 100 mcg/0.5mL dose or 50 mcg/0.25mL dose 1 completed Not Available [facility] 06/28/2023 07:45:30 COVID-19, mRNA, LNP-S, PF, 100 mcg/0.5mL dose or 50 mcg/0.25mL dose 1 completed Not Available [facility] 06/28/2023 07:45:30 Pneumococcal conjugate PCV 13 2 completed Not Available [facility] 06/28/2023 07:45:30 Past Encounters Encounter ID Performer Location Encounter Start Date Encounter Closed Date Diagnosis/Indication Diagnosis SNOMED-CT Code Diagnosis ICD10 Code Diagnosis Note [id number] Juan Antonio Loo MD [facility] Internal Med [facility] [address] [facility] [address] [place] [address] 03/25/2021 00:00:00 03/25/2021 11:55:53 [id number] Juan Antonio Loo MD [facility] Internal Med [address] [place] [address] [address] 10/14/2021 00:00:00 10/14/2021 17:16:45 [id number] Juan Antonio Loo MD [facility] Internal Med [place] [address] [facility] , [place] [address] 12/18/2021 00:00:00 12/18/2021 14:58:23 [id number] Juan Antonio Loo MD [facility] [address] [facility] [address] 03/11/2022 00:00:00 03/11/2022 10:48:53 [id number] Juan Antonio Loo MD [facility] [address] [place] [address] [address] 08/11/2022 00:00:00 08/11/2022 15:42:52 [id number] Juan Antonio Loo [place] [place] [address] [facility] , [place] [address] 11/23/2022 11:47:58 11/23/2022 12:44:26 Essential hypertension 66092763 I10 Pure hypercholesterolemia 718456534 E78.00 Type 2 prasanna betes mellitus without complication 607889033 E11.9 Morbid obesity 067607303 E66.01 Anxiety 21168323 F41.9 [id number] Juan Antonio Loo MD [facility] [place] [address] [address] 02/23/2023 14:46:26 02/23/2023 15:16:13 Essential hypertension 93117430 I10 Pure hypercholesterolemia 881727721 E78.00 Type 2 prasanna betes mellitus without complication 710571807 E11.9 Obstructiv e sleep apnea syndrome 50593078 G47.33 Low back pain 508156805 M54.50 [id number] Juan Antonio Loo MD [facility] [address] [place] [address] [address] 06/06/2023 16:38:18 06/06/2023 17:17:39 Essential hypertension 50075339 I10 Obstructiv e sleep apnea syndrome 19850746 G47.33 Pure hypercholesterolemia 115991388 E78.00 Type 2 prasanna betes mellitus without complication 389197608 E11.9 Morbid obesity 995577875 E66.01 Vitamin D deficiency 347 55730 E55.9 [id number] Juan Antonio Loo MD [facility] Internal Med [facility] [address] [address] 12/05/2023 16:43:12 12/05/2023 17:14:14 Adult health examination 902195408 Z00.00 Depression screening 171 380311 Z13.31 Essential hypertension 94897241 I10 Obstructiv e sleep apnea syndrome 94415645 G47.33 Pure hypercholesterolemia 268007596 E78.00 Type 2 prasanna betes mellitus without complication 054295045 E11.9 Asthma 988746176 J45.90 9 Morbid obesity 482254784 E66.01 [id number] Juan Antonio Loo MD [facility] Internal [facility] [address] [address] 07/11/2024 17:01:09 07/11/2024 17:30:17 Essential hypertension 65946558 I10 Obstructiv e sleep apnea syndrome 64379148 G47.33 Morbid obesity 984874734 E66.01 Pure hypercholesterolemia 523457784 E78.00 Chronic id iopathic urticaria 575949822 L50.8 [id number] Juan Antonio Loo MD [facility] Internal Med [facility] [address] [address] 01/03/2025 16:35:13 01/03/2025 17:42:12 Essential hypertension 52304273 I10 Pure hypercholesterolemia 472402845 E78.00 Type 2 prasanna betes mellitus 76811437 E11.9 Gastroesop hageal reflux disease without esophagitis 162266004 K21.9 Morbid obesity 538500265 E66.01 Health Concerns Section Related Observation LastModified by Organization Detai ls LastModified Time None Recorded Concern Status LastModified by Organization Details LastModified Time None Recorded Advance Directives Directive None Recorded Payers Encounter Date Sequence Insurance Name Policy Number Policy Centeno Covered Member ID Centeno Member ID Guarantor Name 02/23/2023 1 [facility] [id number] Ella E Curyung [id number] Ella E Curyung 06/06/2023 1 [facility] [id number] Ella E Curyung [id number] Ella E Curyung 12/05/2023 1 [facility] [id number] Ella E Curyung [id number] Ella E Curyung 07/11/2024 1 [facility] [id number] Ella E Curyung [id number] Ella E Curyung 01/03/2025 1 [facility] [id number] Ella E Curyung [id number] Ella E Curyung Notes Date Note Type Note Provider Name and Address Organization Details Recorded Time 02/23/2023 text/html Patient Name: Dilcia HuDate Of Service: Tuesday ( 02.23.2023 ): 1955 Age: 67 There has been approximately a 5 lb weight gain since 11/23/2022. This represents approximately a 2.0% change in weight. Weight change attributable to lifestyle changes. Vital Signs:Blood Pressure: Sitting Rt. Arm 120/78Pulse: Sitting 77 /min and RegularRespirations: 12Height 60.5 in or 1.5 mWeight 258 lb or 117.0 kgBMI 49.6DCCT HAIC: 5.8 Calculated MB mg%Pulse Oximetry: 97 % at rest on no oxygen Chief Complaint: Low Back Pain Problems or conditions discussed in the HPI were the only ones reviewed during the encounter.Only social and family history addressed in the HPI were reviewed during this encounter. Attendant(s): None Constitutional and Systemic Symptoms: none Medication Reconciliation: from medication list. History of Present Illness #1. Three day history of left sacroiliac pain with some radiation down into the left buttock. No specific injury although the with the recent of her mother she been doing a lot of physical lifting around the house trying to get furniture and other stuff out of the house. Discomfort is aggravated by bending, stooping, twisting, turning and any physical activity. There was no incontinence of urine or stool. There is no saddle anesthesia noted. Has had intermittent back problems in the past but nothing on a regular basis. Will place on a steroid pack as well as a muscle relaxant to see if there is any improvement. Do not think that radiographic studies at this time will be of much value.: #2. Essential Hypertension: Stage: Stage I Interval Neurological Complaints no headaches, dizziness, weakness, visual changes, ataxia, aphasia and apraxia. No shortness of breath, orthopnea or cardiovascular symptoms. No other symptoms related to end organ damage. Pressure has been under excellent control. Currently normal. No other end organ symptoms or findings. Therapy reviewed regarding management of hypertension and includes salt restriction and Dyazide. #3. Type II Hypercholesterolaemia: Currently not taking medication. No interval complaints of any muscle pain or arthralgia. No significant liver changes with medications. Last lipid panel: fair control. Therapy reviewed regarding treatment of cholesterol management and include diet and Atorvastatin Calcium. #4. Type II Diabetes: Has had no polyuria polyphagia or polydipsia. Has had no hypoglycemic like responses. No new history of any numbness, tingling, weakness or visual problems. No nausea, anorexia or other constitutional symptoms. There has been no foot problems or non healing lesions. The last HAIC was DCCT HAIC: 5.8 Calculated MB mg%. Average blood sugars 116-125 mg%. Checking sugars : several times a week Medication Types Include: diet Secondary complications include none. Macro-vascular complications include none. Therapy reviewed regarding diabetic management and include diet only Compliance: good Renal Protection: not required at this stage Lipid management: statins Urinary microalbumin: A1 . Ophthalmological: has seen eye doctor within the last year #5. Sleep Apnea: Type: ONEDYA Current doing well. No significant daytime somnolence or problems performing daily chores. Using CPAP on nightly basis . Overall has shown considerable improvement.[place] Sleepiness ScaleSitting and ReadinWatching TV: 1Sitting Inactive in a Public Place: 1Passenger in a Car: 1Lying Down in Afternoon: 1Sitting and Talking to someone: 0Sitting quietly after lunch: 1In a car while stopped or drivinScore Interpretation: 0-7 No evidence of abnormally sleepyMedication List Reviewed and Reconciled 3Dyazide 37.5/25 MG Once DailyCpap 10 Mm I13Adyhiwju 110 MG (CAPSULE - ORAL) DailyPrednisone As NeededFamotidine 40 MG (TABLET - ORAL) QdArthrotec 75 MG-0.2 MG (TABLET, DELAYED RELEASE - ORAL) PrnXyzal 5 MG (TABLET - ORAL) One DailyAtorvastatin Calcium 20 MG (TABLET - ORAL) One DailyEpinastine Hcl 0.5 % As DirectedOptivar 0.01% As DirectedXolair 150 MG/VIAL (VIAL) 300 Mg WeeklyZafirlukast 20 MG (TABLET - ORAL) One DailyEscitalopram 5 MG TABLET One DailyADRs List Reviewed 02/23/2023Sulfa Drugs RashMetformin Hydrochloride NauseaInvokana UtiVaccination and Yxxnetdrxvoo6868-90 Prevnar [id number] Covid Booster Tjkxysl8561-74 Covid Mbuibbz9237-89 Tb Ftsu8684-53 DtSurgical HistoryTAH BSO, , Lap Cholecystectomy, , C-SectionPreventative Testing Confirmed by Our Smflhtx3808/16/2022 ALBUMIN 3.8 G/DL08/16/2022 MICRO ALBUMIN <6.0 MG/L110/17/2021 HAIC 5.8 %03/17/2022 MAMMOGRAM /12/2020 DEXA SCAN09/20/2018 COLONOSCOPY (10 YEARS) / HAICSocial HistoryDoes not smoke or drink.Works as a student teacherFamily HistoryMother 85 HTN and Sudden Cardiac DeathFather 73 with ASHD and CABGOne brother and one sister in good health.PGF-LupusMaterna l Aunt-RA Juan Antonio Loo MD [address] [facility], [facility] [address], [place], [address], [facility] - S Top[facility] 02/23/2023 15:12:00 06/06/2023 text/html Patient Name: Dilcia Albrecht CreekDate Of Service: Tuesday ( 06.06.2023 ): 1955 Age: 68 There has been approximately a 2.5 lb weight gain since 02/23/2023. This represents approximately a 1.0% change in weight. Weight change attributable to lifestyle changes. Vital Signs:Blood Pressure: Sitting Rt. Arm 138/82Pulse: Sitting 88 /min and RegularRespiratory Rate: 12Height 60.5 in or 1.5 mWeight 260.5 lb or 118.2 kgBMI 50.0Temperature: 97 F or 36.1 CPulse Oximetry: 98 % at rest on no oxygen Chief Complaint: Addressed in HPI Problems or conditions discussed in the HPI were the only ones reviewed during the encounter.Only social and family history addressed in the HPI were reviewed during this encounter. Attendant(s): NoneConstitutional and Systemic Symptoms:none Medication Reconciliation: from medication list. History of Present Illness #1. Essential Hypertension: Stage: Stage I Interval Neurological Complaints no headaches, dizziness, weakness, visual changes, ataxia, aphasia and apraxia. No shortness of breath, orthopnea or cardiovascular symptoms. No other symptoms related to end organ damage. Pressure has been under excellent control. Currently normal. No other end organ symptoms or findings. Therapy reviewed regarding management of hypertension and includes salt restriction and Dyazide. #2. Type II Hypercholesterolaemia: Currently taking medication and tolerating well. No interval complaints of any muscle pain or arthralgia. No significant liver changes with medications. Last lipid panel: fair control. Therapy reviewed regarding treatment of cholesterol management and include diet and Atorvastatin Calcium. #3. Type II Diabetes: Has had no polyuria polyphagia or polydipsia. Has had no hypoglycemic like responses. No new history of any numbness, tingling, weakness or visual problems. No nausea, anorexia or other constitutional symptoms. There has been no foot problems or non healing lesions. [facility]: 5.8 Calculated MB mg%. Average blood sugars 100-115 mg%. Checking sugars : several times a week Medication Types Include: diet Secondary complications include none. Macro-vascular complications include none. Therapy reviewed regarding diabetic management and include diet only Compliance: good Renal Protection: not required at this stage Lipid management: statins Urinary microalbumin: A1 . Ophthalmological: has seen eye doctor within the last year #4. Sleep Apnea: Type: ONEYDA Current doing well. No significant daytime somnolence or problems performing daily chores. Using CPAP on nightly basis . Overall has shown considerable improvement.[place] Sleepiness ScaleSitting and ReadinWatching TV: 1Sitting Inactive in a Public Place: 1Passenger in a Car: 1Lying Down in Afternoon: 0Sitting and Talking to someone: 1Sitting quietly after lunch: 0In a car while stopped or drivinScore Interpretation: 0-7 No evidence of abnormally sleepy #5. Hx of obesity. Currently Class 3 Obesity PR > 40. Has tried numerous dietary support and supplements with no benefit. Instructed on the health consequences of the obese status particularly cancer - diabetes and heart disease. Discussed new modalities of weight loss including GLP-1 medications that are used to treat diabetes. Potential candidate for bariatric surgery: Yes but does no wish to pursue. Wishes to be evaluated by Dietary: Yes.Medication List Reviewed and Reconciled 3Dyazide 37.5/25 MG Once DailyCpap 10 Mm H33Ebdwutew 110 MG (CAPSULE - ORAL) DailyPrednisone As NeededFamotidine 40 MG (TABLET - ORAL) QdArthrotec 75 MG-0.2 MG (TABLET, DELAYED RELEASE - ORAL) PrnXyzal 5 MG (TABLET - ORAL) One DailyAtorvastatin Calcium 20 MG (TABLET - ORAL) One DailyEpinastine Hcl 0.5 % As DirectedOptivar 0.01% As DirectedXolair 150 MG/VIAL (VIAL) 300 Mg WeeklyZafirlukast 20 MG (TABLET - ORAL) One DailyADRs List Reviewed 06/06/2023Sulfa Drugs RashMetformin Hydrochloride NauseaInvokana UtiVaccination and Ddjxratkmfqk3223-31 Prevnar [id number] Covid Booster Burittw6741-07 Covid Puwmwti9047-44 Tb Saqf0747-27 DtSurgical HistoryTAH BSO, , Lap Cholecystectomy, , C-SectionPreventative Testing Confirmed by Our Epxkbhi9108/16/2022 ALBUMIN 3.8 G/DL08/16/2022 MICRO ALBUMIN <6.0 MG/L110/17/2021 HAIC 5.8 %03/17/2022 MAMMOGRAM /12/2020 DEXA SCAN09/20/2018 COLONOSCOPY (10 YEARS) HAICSocial HistoryDoes not smoke or drink.Works as a student teacherFamily HistoryMother 85 HTN and Sudden Cardiac DeathFather 73 with ASHD and CABGOne brother and one sister in good health.PGF-LupusMaterna l Aunt-RA Juan Antonio Loo MD [address] [facility], [address], [place], [address], [place] [facility] 06/06/2023 17:12:00 12/05/2023 text/html Patient Name: Dilcia Coley Of Service: Tuesday ( 12.05.2023 ): 1955 Age: 68 There has been approximately a 4.5 lb weight gain since 06/06/2023. This represents approximately a 1.7% change in weight. Weight change attributable to lifestyle changes. Vital Signs:Blood Pressure: Sitting Rt. Arm 144/80Pulse: Sitting 73 /min and RegularRespiratory Rate: 12Height 60.5 in or 1.5 mWeight 265 lb or 120.2 kgBMI 50.9Temperature: 97.2 F or 36.2 CDCCT HAIC: 5.6 Calculated MB mg%Pulse Oximetry: 97 % at rest on no oxygen Chief Complaint: Addressed in HPI Problems or conditions discussed in the HPI were the only ones reviewed during the encounter.Only social and family history addressed in the HPI were reviewed during this encounter. Attendant(s): NoneConstitutional and Systemic Symptoms:none Medication Reconciliation: from medication list. History of Present Illness In for a well patient check up. Last well patient evaluation was approximately one year. No interval complaints of any major medical problems. No hx of any chest pain, shortness of breath, nausea, vomiting, diarrhea or constitutional symptoms. Also being followed for other chronically monitored problems.Has Had A Mammogram Due but refusingHas Had A Pap Smear dueImmunizations Up To Date or refuses to takeNo Significant Change In Family HxColonoscopy or Cologuard: not dueFall Risk normalDepression Score: 0Hearing normalVision normalReviewed Smoking and Drug HistoryReviewed Immunization HistoryInstructed on importance of weight on diabetes, heart and other diseases aggravated by obesity. #2. Essential Hypertension: Stage: Stage I Interval Neurological Complaints no headaches, dizziness, weakness, visual changes, ataxia, aphasia and apraxia. No shortness of breath, orthopnea or cardiovascular symptoms. No other symptoms related to end organ damage. Pressure has been under fair control. Currently normal. No other end organ symptoms or findings. Therapy reviewed regarding management of hypertension and includes salt restriction and Dyazide. #3. Type II Hypercholesterolaemia: Currently taking medication and tolerating well. No interval complaints of any muscle pain or arthralgia. No significant liver changes with medications. Last lipid panel: fair control. Therapy reviewed regarding treatment of cholesterol management and include diet and Medication. #4. Type II Diabetes: Has had no polyuria polyphagia or polydipsia. Has had no hypoglycemic like responses. No new history of any numbness, tingling, weakness or visual problems. No nausea, anorexia or other constitutional symptoms. There has been no foot problems or non healing lesions. The last HAIC was [facility] HAIC: 5.6 Calculated MB mg%. Average blood sugars 116-125 mg%. Checking sugars : several times a week Medication Types Include: diet Secondary complications include none. Macro-vascular complications include none. Therapy reviewed regarding diabetic management and include diet only Compliance: good Renal Protection: not required at this stage Lipid management: statins Urinary microalbumin: A1 . Ophthalmological: has seen eye doctor within the last year #5. Sleep Apnea: Type: ONEYDA Current doing well. No significant daytime somnolence or problems performing daily chores. Using CPAP on nightly basis . Overall has shown considerable improvement.[place] Sleepiness ScaleSitting and ReadinWatching TV: 1Sitting Inactive in a Public Place: 0Passenger in a Car: 1Lying Down in Afternoon: 1Sitting and Talking to someone: 1Sitting quietly after lunch: 0In a car while stopped or drivinScore Interpretation: 0-7 No evidence of abnormally sleepy #6. Hx of asthma. Daily medications: none. Uses bronchodilators very infrequently. Night time exacerbations: less than 2 times monthly There has been no cough, congestion, or sputum production. No changes in exercise tolerance. Denies any fever or chills. Tolerating the medications without problems. The current status could be classified as Intermittent asthma. Using nebulizer Treatments: No. #7. Hx of obesity. Currently Class 3 Obesity PR > 40. Has tried numerous dietary support and supplements with no benefit. Instructed on the health consequences of the obese status particularly cancer - diabetes and heart disease. Discussed new modalities of weight loss including GLP-1 medications that are used to treat diabetes. Potential candidate for bariatric surgery: No. Wishes to be evaluated by Dietary: No and was offered to be evaluated and instructed by sde on weight loss diet. Active Medication ListDyazide 37.5/25 MG Once DailyCpap 10 Mm P91Patachvs 110 MG (CAPSULE - ORAL) DailyPrednisone As NeededFamotidine 40 MG (TABLET - ORAL) QdXyzal 5 MG (TABLET - ORAL) One DailyAtorvastatin Calcium 20 MG (TABLET - ORAL) One DailyEpinastine Hcl 0.5 % As DirectedXolair 150 MG/VIAL (VIAL) 300 Mg WeeklyZafirlukast 20 MG (TABLET - ORAL) One Daily Adverse Drug Reactions ReviewedSulfa Drugs RashMetformin Hydrochloride NauseaInvokana Uti Vaccination and Gnzfswchswcw5090-22 Prevnar 13 Ec4345-18 Covid Booster Hrdbzvn0365-72 Covid Rfogmdo1118-20 Tb Goil5311-05 Dt Surgical Rpggwyh2594-07 [facility] MPC1295-70 Z-Qbhyxjx4701-03 Lap Rsbvhngmshplbej9643-35 S-Etmjdkf6446-30 Preventative Qrghnmk6007/15/2023 ALBUMIN 3.5 G/DL N109/14/2022 MICRO ALBUMIN <6.0 MG/L N109/14/2022 HAIC 5.6 % N003/17/2022 MAMMOGRAM 302/12/2020 DEXA SCAN09/20/2018 COLONOSCOPY (10 YEARS) 09/20/2028 Social HistoryDoes not smoke or drink.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 Family HistoryMother 85 HTN and Sudden Cardiac DeathFather 73 with ASHD and CABGOne brother and one sister in good health.PGF-LupusMaterna l Aunt-RA TEST RESULT RANGE UNITSHEMOGLOBIN A1C Date: 07/15/2023HA1C 5.6 4.0-6.0 %LIPID PANEL Date: 07/15/2023HOLESTEROL 235 140-199 MG/DLTRIGLYCERIDES 154 0-150 MG/DLHDL CHOLESTEROL 45 40- MG/DLLDL CHOLESTEROL, CALCULATED 159 0-130 MG/DL Juan Antonio Loo MD [address] [facility], [facility] [address], [place], [address], [facility] [employer] 12/05/2023 17:11:29 07/11/2024 text/html Patient Name: Dilcia Albrecht CreekDate Of Service: Tuesday ( 07.11.2024 ): 1955 Age: 69 There has been approximately a 4 lb weight gain since 12/05/2023. This represents approximately a 1.5% change in weight. Weight change attributable to lifestyle changes. Vital Signs:Blood Pressure: Sitting Rt. Arm 128/82Pulse: Sitting 85 /min and RegularRespiratory Rate: 16Height 60.5 in or 1.5 mWeight 269 lb or 122.0 kgBMI 51.7Temperature: 97 F or 36.1 CDCCT HAIC: 5.7 Calculated MB mg%Pulse Oximetry: 97 % at rest on no oxygen Chief Complaint: Addressed in HPI Problems or conditions discussed in the HPI were the only ones reviewed during the encounter.Only social and family history addressed in the HPI were reviewed during this encounter. Attendant(s): NoneConstitutional and Systemic Symptoms:none Medication Reconciliation: from medication list. History of Present Illness #1. Essential Hypertension: Stage: Stage I Interval Neurological Complaints no headaches, dizziness, weakness, visual changes, ataxia, aphasia and apraxia. No shortness of breath, orthopnea or cardiovascular symptoms. No other symptoms related to end organ damage. Pressure has been under fair control. Currently normal. No other end organ symptoms or findings. Therapy reviewed regarding management of hypertension and includes salt restriction and Dyazide. #2. Type II Hypercholesterolaemia: Currently taking medication and tolerating well. No interval complaints of any muscle pain or arthralgia. No significant liver changes with medications. Last lipid panel: excellent control. Therapy reviewed regarding treatment of cholesterol management and include diet and Atorvastatin Calcium. #3. Sleep Apnea: Type: ONEYDA Current doing well. No significant daytime somnolence or problems performing daily chores. Using CPAP on nightly basis . Overall has shown considerable improvement.[place] Sleepiness ScaleSitting and ReadinWatching TV: 1Sitting Inactive in a Public Place: 1Passenger in a Car: 1Lying Down in Afternoon: 1Sitting and Talking to someone: 0Sitting quietly after lunch: 1In a car while stopped or drivinScore Interpretation: 0-7 No evidence of abnormally sleepy #4.Chronic idiopathic urticaria. Currently doing well. Does take Xyzal, Xolair, prednisone on an intermittent basis and overall has been doing well. #5. Hx of shift work sleep disorder. Taking some improvement. Overall effectiveness of treatment: no Having Class 3 Obesity PR > 40 daytime somnolence. #6. Hx of obesity. Currently no. Has tried numerous dietary support and supplements with no benefit. Instructed on the health consequences of the obese status particularly cancer - diabetes and heart disease. Discussed other modalities of weight loss No . Potential candidate for bariatric surgery: No and was offered to be evaluated and instructed by sde on weight loss diet. Wishes to be evaluated by Dietary: No and was offered to be evaluated and instructed by sde on weight loss diet. Active Medication ListDyazide 37.5/25 MG Once DailyCpap 10 Mm O02Ixeynxro 110 MG (CAPSULE - ORAL) DailyPrednisone As NeededFamotidine 40 MG (TABLET - ORAL) QdXyzal 5 MG (TABLET - ORAL) One DailyAtorvastatin Calcium 20 MG (TABLET - ORAL) One DailyEpinastine Hcl 0.5 % As DirectedXolair 150 MG/VIAL (VIAL) 300 Mg WeeklyZafirlukast 20 MG (TABLET - ORAL) One Daily Adverse Drug Reactions ReviewedSulfa Drugs RashMetformin Hydrochloride NauseaInvokana Uti Vaccination and Immunization( ) 2004- DT( ) 2007-01 TB TEST( ) 2020- COVID MODERNA(X) 2020- COVID BOOSTER MODERNA( ) 2021- PREVNAR 13 GC Surgical Olcogol6249-87 [facility] QUH7131-58 D-Jujtfgy5324-87 Lap Ztgcxymlbotqrui8731-74 X-Hdiapvb3796-17 Preventative Testing( ) 02/15/2024 Albumin 3.9 G/DL( ) 02/15/2024 HAIC 5.7( ) 07/15/2023 Micro Albumin <6.0 MG/L N(X) 03/17/2022 Mammogram 03/17/2024(X) 10/09/2020 DEXA Scan 10/09/2022( ) 09/20/2018 Colonoscopy (10 Years) 09/20/2028 Social HistoryDoes 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 smoke or drink.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 Family HistoryMother 85 HTN and Sudden Cardiac DeathFather 73 with ASHD and CABGOne brother and one sister in good health.PGF-LupusMaterna l Aunt-RA Active Medication ListDyazide 37.5/25 MG Once DailyCpap 10 Mm F75Bieqwmel 110 MG (CAPSULE - ORAL) DailyPrednisone As NeededFamotidine 40 MG (TABLET - ORAL) QdXyzal 5 MG (TABLET - ORAL) One DailyAtorvastatin Calcium 20 MG (TABLET - ORAL) One DailyEpinastine Hcl 0.5 % As DirectedXolair 150 MG/VIAL (VIAL) 300 Mg WeeklyZafirlukast 20 MG (TABLET - ORAL) One Daily Adverse Drug Reactions ReviewedSulfa Drugs RashMetformin Hydrochloride NauseaInvokana Uti Vaccination and Immunization( ) 2004-09 DT( ) 2006- TB TEST( ) 2020- COVID MODERNA(X) 2021-08 COVID BOOSTER MODERNA( ) 2022-08 PREVNAR 13 GC Surgical Zgfsbhg2989-88 [facility] HND7350-31 S-Xkenxlu3656-95 Lap Lcvshzsjblowxif3385-42 C-Eyqypzo5904-07 Preventative Testing( ) 02/15/2024 Albumin 3.9 G/DL( ) 02/15/2024 HAIC 5.7( ) 07/15/2023 Micro Albumin <6.0 MG/L N(X) 03/17/2022 Mammogram 03/17/2024(X) 10/09/2020 DEXA Scan 10/09/2022( ) 09/20/2018 Colonoscopy (10 Years) 09/20/2028 Social HistoryDoes 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 [address], [place], [address], [place] - [facility] [employer] 07/11/2024 17:21:41 01/03/2025 text/html Patient Name: Dilcia Albrecht CreekDate Of Service: January ( 01.03.2025 ): 1955 Age: 69 Vital Signs:Blood Pressure: Sitting Rt. Arm 132/74Pulse: Sitting 91 /min and RegularRespiratory Rate: 16Height 60.5 in or 1.5 mWeight 268.5 lb or 121.8 kgBMI 51.6Temperature: 97 F or 36.1 CDCCT HAIC: 5.7 Calculated MB mg%Pulse Oximetry: 95 % at rest on no oxygen Chief Complaint: Addressed in HPI Problems or conditions discussed in the HPI were the only ones reviewed during the encounter.Only social and family history addressed in the HPI were reviewed during this encounter. Attendant(s): NoneConstitutional and Systemic Symptoms:none Medication Reconciliation: from medication list. History of Present Illness #1. Essential Hypertension: Stage: Stage I Interval Neurological Complaints no headaches, dizziness, weakness, visual changes, ataxia, aphasia and apraxia. No shortness of breath, orthopnea or cardiovascular symptoms. No other symptoms related to end organ damage. Pressure has been under excellent control. Currently normal. No other end organ symptoms or findings. Therapy reviewed regarding management of hypertension and includes salt restriction and Dyazide. #2. Type II Hypercholesterolaemia: Currently taking medication and tolerating well. No interval complaints of any muscle pain or arthralgia. No significant liver changes with medications. Last lipid panel: fair control. Therapy reviewed regarding treatment of cholesterol management and include diet and Atorvastatin Calcium. #3. Type II Diabetes: Has had no polyuria polyphagia or polydipsia. Has had no hypoglycemic like responses. No new history of any numbness, tingling, weakness or visual problems. No nausea, anorexia or other constitutional symptoms. There has been no foot problems or non healing lesions. [facility]: 5.7 Calculated MB mg%. CGM: No. Average blood sugars 100-115 mg%. Checking sugars : several times a week. Medication Types Include: diet Secondary complications include none. Macro-vascular complications include none. Therapy reviewed regarding diabetic management and include diet only Compliance: good Renal Protection: not required at this stage Lipid management: statins Urinary microalbumin: not performed recently . Ophthalmological: has seen eye doctor within the last year. Control: Below 6.2 #4. Hx of esophageal reflux currently stable. Hx of Complications: none The severity, duration and intensity of symptoms have improved. Frequency: most meals Treatment consists medications taken on intermittent basis. Current therapy includes started Pantoprazole. There has been no nausea, eructation, vomiting, hematemesis, dysphagia, velopharyngeal insufficiency and odynophagia. No change in he frequency or intensity of symptoms. Has had no melena. Has had no . Discussed use of H2 antagonists NA. #5. Hx of obesity. Currently Class 3 Obesity PR > 40. Has tried numerous dietary support and supplements with no benefit. Instructed on the health consequences of the obese status particularly cancer - diabetes and heart disease. Discussed other modalities of weight loss no . Potential candidate for bariatric surgery: No. Wishes to be evaluated by Dietary: No and was offered to be evaluated and instructed by sde on weight loss diet. Active Medication ListDyazide 37.5/25 MG Once DailyCpap 10 Mm Z97Wlnpvodv 110 MG (CAPSULE - ORAL) DailyPrednisone As NeededPantoprazole 40 MG (TABLET - ORAL) QdXyzal 5 MG (TABLET - ORAL) One DailyAtorvastatin Calcium 20 MG (TABLET - ORAL) One DailyEpinastine Hcl 0.5 % As DirectedXolair 150 MG/VIAL (VIAL) 300 Mg WeeklyZafirlukast 20 MG (TABLET - ORAL) One Daily Adverse Drug Reactions ReviewedSulfa Drugs RashMetformin Hydrochloride NauseaInvokana Uti Vaccination and Immunization( ) 2004-09 DT( ) 2007-01 TB TEST( ) 2020- COVID MODERNA(X) 2020- COVID BOOSTER MODERNA( ) 2022-08 PREVNAR 13 Surgical Xqblwat8177-97 [facility] DOR6690-82 Y-Nyqnvje7358-30 Lap Xkrwhicrorxxtnt8989-35 J-Aijgspw9940-10 Preventative Testing( ) 02/15/2024 Albumin 3.9 G/DL( ) 02/15/2024 HAIC 5.7( ) 07/15/2023 Micro Albumin <6.0 MG/L N(X) 03/17/2022 Mammogram 03/17/2024(X) 10/09/2020 DEXA Scan 10/09/2022( ) 09/20/2018 Colonoscopy (10 Years) 09/20/2028 Social HistoryDoes 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
--- OUTSIDE RECORDS SUMMARY | 2025-01-10 08:52 | XMS_ITS | Encounter Summary ---
Author Organization [facility] Address [address] 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
[2025-01-10 09:06] LABS: Estimated Glomerular Filt Rate > 60
== END 2025-01-10 08:40 | disposition home or self-care (01) ==
PROVIDERS: PCP Internal Medicine; Visit Provider Internal Medicine
DX: R59.0 Localized enlarged lymph nodes (principal)
CPT/HCPCS: 70491; Q9967

== ENCOUNTER 2025-04-08 08:24 | Outpatient (CLI) | payer OTHER, SELFPAY ==
--- NOTE | ~2025-04-08 | DEXA_ITS ---
Bone Density Report Name: GENESIS MENDOZA Age: 70 Sex: Female Ethnicity: White Date of : 1955 Indication: postmenopausal; screening for osteoporosis; height loss; history of glucocorticoids; asthma or emphysema; hysterectomy; Referring Provider: OTONIEL*, MESERET [place] Study: Bone densitometry was performed. Exam Date: April 08, 2025 Accession number: [id number] Bone Density: Region BMD T-score Z-score Classification AP Spine(L1-L4) 0.947 -0.9 1.1 Normal Femoral Neck (Left) 0.617 -2.1 -0.4 Osteopenia Total Hip (Left) 0.890 -0.4 1.0 Normal Femoral Neck (Right) 0.451 -3.6 -1.9 Osteoporosis Total Hip (Right) 0.950 0.1 1.5 Normal Total Hip Mean 0.920 -0.2 1.3 Normal World Health Organization criteria for BMD impression classify patients as: Normal (T-score at or above -1.0), Osteopenia (T-score between -1.0 and -2.5), or Osteoporosis (T-score at or below -2.5). 10-year Fracture Risk: FRAX not reported because: Some T-score for Spine Total or Hip Total or Femoral Neck at or below -2.5 Clinical Information Provided by Patient: Has taken Glucocorticoids Has the following medical conditions: Asthma or Emphysema, Hysterectomy Patient maximum height was 61.0 Menopause Age: 47 Does not regularly consume dairy products Drinks caffeinated beverages Onset of menses at age 14 Number of children 3 Impression: The patient has osteoporosis, based on the Right Femoral Neck T-score. The patient has risk factors, including: history of glucocorticoid therapy. Discussion: INCREASED RISK OF FRACTURE. BONE DENSITY IS UNDESIRABLY LOW AT ONE OR MORE SKELETAL SITES, CONSISTENT WITH POSTMENOPAUSAL OSTEOPOROSIS. This patient's lowest T-score meets the World Health Organization's (WHO) criteria for osteoporosis at one or more sites (T-score -2.5 or below). In untreated patients, the risk of osteoporotic fracture increases approximately two-fold for each 1.0 SD decrease in T-score. Low bone density is not the only risk factor for fracture; also consider factors such as patient's age, frailty or poor health, risk of falling, risk of injury, previous osteoporotic fracture, family history of osteoporosis, cigarette smoking, low body weight, etc. Not everyone with low bone mineral density has osteoporosis; osteomalacia and other metabolic bone disorders should also be considered. Patients who have osteoporosis should be evaluated for specific diseases and conditions (secondary causes) that may cause or contribute to bone loss. The [place] [employer] (AACE) and National Osteoporosis Foundation (NOF) recommend pharmacologic intervention for all postmenopausal women whose T-score is in this range. The patient should follow a healthful lifestyle (good nutrition with adequate calcium and vitamin D, and appropriate weight-bearing exercise). Follow-Up: Consider a repeat BMD and Vertebral Fracture Assessment (VFA) exam in 2 years or sooner if medically necessary, to reassess this patient's status. Reported by: ANALIA on 04/08/2025 9:13:00 AM. Reviewed, dictated and finalized at location A.
--- OUTSIDE RECORDS SUMMARY | 2025-04-08 08:35 | XMS_ITS | Referral Summary ---
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 Gender Identity Not on file Sexual Orientation [...] 4:01 PM CDT Height 154.9 cm (5' 1) 06/06/2019 4:01 PM CDT Body Mass Index 50.83 06/06/2019 4:01 PM CDT Plan of Treatment Not on file Insurance [facility] H[facility]/PPO Address: [place] [address] [facility] H[facility]/PPO Address: [place] [address] Care Teams Manufacturing Shift Supervisor Relationship Specialty Start Date End Date Juan Antonio Loo MD PCP - General Internal Medicine 06/30/17 Gabe Medina MD [address] [facility] [address] [place] [address] Consulting Physician Rheumatology 03/26/19 Awa Ramírez MD [address] [place] [address] Consulting Physician Allergy and Immunology 03/26/19
--- OUTSIDE RECORDS SUMMARY | 2025-04-08 08:35 | XMS_ITS | Clinical Summary ---
Author Organization [facility] Address [address] [place] [address] Care Team Providers Care Train Braker Name Role Phone Edgard Olmstead MD Primary Care Provider [phone] Source Comments [facility],non-owned Affiliates and Associated Physician Practices is amultiple site organization consisting of ambulatory clinics and hospital sitesin [place], [place], [place] and [place]. This disclosure is being madepursuant to the Care Everywhere program and may not contain all information available regarding this patient. Last updated 18.[facility] Allergies Active Allergy Reactions Criticality Noted Date Comments Sulfa Drugs Rash Low 03/10/2012 Medications * Be aware that medications may not be up to date on this document. Alwaysverify current medications with the patient. albuterol HFA (PROAIR HFA) 108 (90 BASE) MCG/ACT inhaler 2 puff up to four times daily as needed. 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
--- OUTSIDE RECORDS SUMMARY | 2025-04-08 08:35 | XMS_ITS | Clinical Summary ---
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 Gender Identity Not on file Sexual Orientation [...] Treatment Not on file Insurance [facility] Address: [place] [address] [facility] [facility]PPO Address: [facility] [address] [place] [address] Care Teams Business Line Manager Relationship Specialty Start Date End Date Juna Antonio Loo MD PCP - General Internal Medicine 06/30/17 Gabe Medina MD [address] [place] [address] Consulting Physician Rheumatology 03/26/19 Awa Ramírez MD [address] [place] [address] Consulting Physician Allergy and Immunology 03/26/19
--- OUTSIDE RECORDS SUMMARY | 2025-04-08 08:35 | XMS_ITS | Encounter Summary ---
Author Organization [facility] Address [address] 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
--- OUTSIDE RECORDS SUMMARY | 2025-04-08 08:35 | XMS_ITS | Continuity of Care Document ---
Author Organization [facility] Address [address] [place] [address] Phone Care Team Providers Care Employment Trainer Name Role Phone Darrell ESPINOZA, Awa Unavailable Unavailabl e Allergies, Adverse Reactions, Alerts Substance Reaction Status Criticality Sulfa (Sulfonamide Antibiotics) Rash Active No Information Medications Medication Instructions Dosage Effective Dates (start - stop) Status Comments Orladeyo 110 mg capsule take 1 capsule by oral route every day 110 MG - Active epinastine 0.05 % eye drops INSTILL 1 DROP IN BOTH EYES TWICE A DAY - Active azelastine 137 mcg (0.1 %) nasal spray USE 2 SPRAYS IN EACH NOSTRIL TWICE A DAY - Active famotidine 40 mg tablet TAKE 1 TABLET DAILY AT BEDTIME - Active prednisone 10 mg tablet TAKE 5 TABLETS BY MOUTH EVERY DAY - Active Xolair 150 mg/mL subcutaneous syringe INJECT THE CONTENTS OF 2 SYRINGES (300 MG) UNDER THE SKIN EVERY 4 WEEKS - Active levocetirizine 5 mg tablet take 1 tablet by oral route every day in the evening 5 MG - Active EpiPen 0.3 mg/0.3 mL injection, auto-injector inject 0.3 milliliter by intramuscular route once as needed for anaphylaxis 0.3 MG - Active Accolate 20 mg tablet TAKE 1 TABLET TWICE A DAY 1 HOUR BEFORE OR 2 HOURS AFTER MEALS - Active Metrogel 1 % topical apply by topical route every day to the affected area(s) ; rub in gently and completely 0.00 - Active ALBUTEROL HFA 90 MCG INHALER INHALE TWO PUFFS BY MOUTH EVERY 4 TO 6 HOURS NEEDED - Active ATORVASTATIN CALCIUM (unknown strength) take 1 tablet by oral route every day Not Available - Active triamterene 37.5 mg-hydrochlorothiaz luis angel 25 mg capsule take 1 capsule by oral route every day 1.00 capsule - Active Orladeyo 110 mg capsule take 1 capsule by oral route every day 110 MG - No Longer Active Procedures Procedure Date Omalizumab injection THER/PROPH/DIAG [...] Diagnoses Date Provider Providers Copied on Encounter [facility] , [address] [facility] [address], [place], [address], tel:[phone] [facility] No Information 5 Darrell Sima. [address], [place], [place], [address]. tel:[phone] [facility] , [address], [place], [address], [place] tel:[phone] [facility] No Information 5 Darrell Hamsa. [address], [place], [place], [address]. tel:[phone] OFFICE/OUTPA TIENT VISIT EST [facility] , [address], [place], [address], [place] tel:[phone] [facility] Other allergic rhinitisChron ic idiopathic urticariaAlle rgic rhinitis due to animal (cat) (dog) hair and danderAllergi c rhinitis due to pollenCervica l lymphadenopat hy 5 Darrell Hamsa. [address], [place], [place], [address]. tel:[phone] [facility] , [address], [place], [address], [place] tel:[phone] [facility] No Information 5 Darrell Hamsa. [address], [place], [place], [address]. tel:[phone] [facility] , [address], [place], [address], [place] tel:[phone] [facility] No Information 5 Darrell Hamsa. [address], [place], [place], [address]. tel:[phone] OFFICE/OUTPA TIENT VISIT EST [facility] , [address], [place], [address], [place] tel:[phone] [facility] annual (chief complaint) Defects in complement systemChronic idiopathic urticariaAngi oedema, subsequent encounterOthe r allergic rhinitisRosac ea 5 Darrell Hamsa. [address], [place], [place], [address]. tel:[phone] OFFICE/OUTPA TIENT VISIT EST [facility] , [address], [place], [address], [place] tel:[phone] [facility] annual and xolair (chief complaint) Angioedema, subsequent encounterChro vannessa idiopathic urticariaAlle rgic rhinitis due to animal (cat) (dog) hair and danderAllergi c rhinitis due to pollenDefects in complement systemMild persistent asthma, uncomplicated 4 Darrell Hamsa. [address] [facility] [address], [place], [place], [address]. tel:[phone] [facility] , [address] [facility] [address] [address], [place], [address], [place] tel:[phone] [facility] Allergic rhinitis due to pollenAllergi c rhinitis due to animal (cat) (dog) hair and danderChronic idiopathic urticariaAngi oedema, subsequent encounter 3 Darrell Hamsa. [address] [facility] [address], [place], [place], [address]. tel:[phone] OFFICE/OUTPA TIENT VISIT EST [facility] , [address] [facility] [address], [place], [address], [place] tel:[phone] [facility] annual (chief complaint) Body mass index [BMI] 45.0-49.9, adultAllergic rhinitis due to pollenOther allergic rhinitisAller gic rhinitis due to animal (cat) (dog) hair and danderAngioed viral, subsequent encounterEgg allergyDefect s in complement systemChronic idiopathic urticariaVacc ine counseling 2 Darrell Hamsa. [address] [facility] [address], [place], [place], [address]. tel:[phone] Specialist : Gabe Medina, [address], [place], [address]. tel:[phone] [facility] , [address] [facility] [address], [place], [address], [place] tel:[phone] [facility] Allergic rhinitis due to animal (cat) (dog) hair and danderOther allergic rhinitisAller gic rhinitis due to pollen 2 Darrell Hamsa. [address], [place], [place], [address]. tel:[phone] OFFICE/OUTPA TIENT VISIT EST [facility] , [address] , [place], [address], [place] tel:[phone] [facility] f/u (chief complaint) Angioedema, subsequent encounterDefe cts in complement systemChronic idiopathic urticariaAlle rgic rhinitis due to animal (cat) (dog) hair and danderAllergi c rhinitis due to pollenOther allergic rhinitisEgg allergyBody mass index [BMI] 45.0-49.9, adult 1 Darrell Hamsa. [address], [place], [place], [address]. tel:[phone] OFFICE/OUTPA TIENT VISIT EST [facility] , [address] , [place], [address], [place] tel:[phone] [facility] Annual check-up (chief complaint) Allergic rhinitis due to animal (cat) (dog) hair and danderAngioed viral, subsequent encounterChro vannessa idiopathic urticariaAlle rgic rhinitis due to pollenDefects in complement systemBody mass index [BMI] 45.0-49.9, adult 1 Darrell Hamsa. [address], [place], [place], [address]. tel:[phone] Specialist : Gabe Medina, [address], [place], [address]. tel:[phone] [facility] , [address] , [place], [address], [place] tel:[phone] [facility] No Information 0 Darrell Hamsa. [address], [place], [place], [address]. tel:[phone] OFFICE/OUTPA TIENT VISIT EST [facility] , [address], [place], [address], [place] tel:[phone] [facility] cluster (chief complaint) Allergic rhinitis due to animal (cat) (dog) hair and danderOther allergic rhinitisAller gic rhinitis due to pollenChronic idiopathic urticariaAngi oedema, subsequent encounterEsse ntial (primary) hypertension Stuart-0 4- 0 Darrell Hamsa. [address], [place], [place], [address]. tel:[phone] OFFICE/OUTPA TIENT VISIT EST [facility] , [address], [place], [address], [place] tel:[phone] [facility] cluster immunotherapy (chief complaint) Allergic rhinitis due to animal (cat) (dog) hair and danderAllergi c rhinitis due to pollenOther allergic rhinitisAngio edema, subsequent encounterChro vannessa idiopathic urticaria January- 0 Darrell Hamsa. [address], [place], [place], [address]. tel:[phone] OFFICE/OUTPA TIENT VISIT EST [facility] , [address], [place], [address], [place] tel:[phone] [facility] here for breaking out (chief complaint) Allergic rhinitis due to animal (cat) (dog) hair and danderOther allergic rhinitisAller gic rhinitis due to pollenChronic idiopathic urticariaAngi oedema, subsequent encounterBody mass index (BMI) 45.0-49.9, adult January-2 0- 0 Darrell Hamsa. [address], [place], [place], [address]. tel:[phone] Specialist : Gabe Medina, [address], [place], [address]. tel:[phone] [facility] , [address], [place], [address], [place] tel:[phone] [facility] No Information Dec-3 0- 0 Darrell Hamsa. [address], [place], [place], [address]. tel:[phone] [facility] , [address], [place], [address], [place] tel:[phone] [facility] Chronic idiopathic urticariaAlle rgic rhinitis due to pollenOther allergic rhinitisAller gic rhinitis due to animal (cat) (dog) hair and dander 0 Darrell Hamsa. [address], [place], [place], [address]. tel:[phone] OFFICE/OUTPA TIENT VISIT EST [facility] , [address], [place], [address], [place] tel:[phone] [facility] Annual check-up (chief complaint) Allergic rhinitis due to pollenChronic idiopathic urticariaRheu matoid arthritis, involving unspecified site, unspecified rheumatoid factor presenceEgg allergy 9 Darrell Hamsa. [address], [place], [place], [address]. tel:[phone] Specialist : Gabe Medina, [address], [place], [address]. tel:[phone] [facility] , [address] , [place], [address], [place] tel:[phone] [facility] Angioedema, subsequent encounterChro vannessa idiopathic urticariaAlle rgic rhinitis due to pollen Feb- 9 Darrell Hamsa. [address], [place], [place], [address]. tel:[phone] [facility] , [address], [place], [address], [place] tel:[phone] [facility] Other urticaria May- 8 Darrell Hamsa. [address], [place], [place], [address]. tel:[phone] OFFICE/OUTPA TIENT VISIT EST [facility] , [address], [place], [address], [place] tel:[phone] [facility] Angioedema, subsequent encounterAlle rgic rhinitis due to pollenOther urticaria Dec- 8 Darrell Hamsa. [address], [place], [place], [address]. tel:[phone] OFFICE/OUTPA TIENT VISIT EST [facility] , [address] [facility] [address], [place], [address], [place] tel:[phone] [facility] allergy evaluation (chief complaint) Chronic idiopathic urticariaAngi oedema, subsequent encounterOthe r allergic rhinitisBody mass index (BMI) 50-59.9 , adult Mar-09 11- 8 Darrell Hamsa. [address] [facility] [address], [place], [place], [address]. tel:[phone] OFFICE/OUTPA TIENT VISIT EST [facility] , [address] [facility] [address], [place], [address], [place] tel:[phone] [facility] xolair injection (chief complaint) Allergy to pollenChronic idiopathic urticariaAngi oedema, subsequent encounter 7 Darrell Hamsa. [address], [place], [place], [address]. tel:[phone] OFFICE/OUTPA TIENT VISIT EST [facility] , [address], [place], [address], [place] tel:[phone] [facility] angioedema and hives (chief complaint)all ergy injections (chief complaint) Angioedema, subsequent encounterChro vannessa idiopathic urticariaAlle rgy to pollen Aug- 7 Darrell Hamsa. [address], [place], [place], [address]. tel:[phone] [facility] , [address] [facility] [address], [place], [address], [place] tel:[phone] [facility] Follow Up of cluster immunotherapy (chief complaint) Allergy to pollenHivesAn gioedema, subsequent encounter 7 Darrell Hamsa. [address], [place], [place], [address]. tel:[phone] [facility] , [address], [place], [address], [place] tel:[phone] [facility] cluster immunotherapy (chief complaint) Allergy to pollenOther allergic rhinitisHives 7 Darrell Hamsa. [address], [place], [place], [address]. tel:[phone] [facility] , [address], [place], [address], [place] tel:[phone] [facility] allergy evaluation (chief complaint) Allergic rhinitis due to pollenChest congestion 7 Darrell Hamsa. [address], [place], [place], [address]. tel:[phone] OFFICE/OUTPA TIENT VISIT EST [facility] , [address] , [place], [address], [place] tel:[phone] [facility] Follow Up of first allergy injection (chief complaint) Angioedema, subsequent encounterAlle rgic rhinitis due to pollenRash 7 Darrell Hamsa. [address], [place], [place], [address]. tel:[phone] OFFICE/OUTPA TIENT VISIT EST [facility] , [address], [place], [address], [place] tel:[phone] [facility] Annual check-up (chief complaint) Angioedema, subsequent encounterAlle rgic rhinitis due to pollenChronic urticariaHip pain, bilateralPain in left hip 7 Darrell Hamsa. [address], [place], [place], [address]. tel:[phone] OFFICE/OUTPA TIENT VISIT EST [facility] , [address], [place], [address], [place] tel:[phone] [facility] allergy evaluation (chief complaint) Angioedema, subsequent encounterAlle rgic rhinitis due to pollen 6 Darrell Hamsa. [address], [place], [place], [address]. tel:[phone] OFFICE/OUTPA TIENT VISIT EST [facility] , [address] [facility] [facility] [address], [place], [address], [place] tel:[phone] [facility] Annual check-up (chief complaint) Angioedema, subsequent encounterAlle rgic rhinitis due to pollenChronic urticaria 6 Darrell Hamsa. [address], [place], [place], [address]. tel:[phone] [facility] , [address] [facility] [address], [place], [address], [place] tel:[phone] [facility] Unspecified osteoarthriti s, unspecified site 5 Darrell Hamsa. [address], [place], [place], [address]. tel:[phone] OFFICE/OUTPA TIENT VISIT EST [facility] , [address] [facility] [address], [place], [address], [place] tel:[phone] [facility] reactions from allergy injections (chief complaint)rev iew of her lab work (chief complaint) Other allergic rhinitisAller gic rhinitis due to animal (cat) (dog) hair and danderLocaliz ed edemaAllergic urticariaFood allergy 5 Darrell Hamsa. [address], [place], [place], [address]. tel:[phone] OFFICE/OUTPA TIENT VISIT EST [facility] , [address] [facility] [facility] [address], [place], [address], [place] tel:[phone] [facility] start her first allergy injections (chief complaint) Angioneurotic edemaAllergic rhinitis due to pollen 5 Darrell Hamsa. [address], [place], [place], [address]. tel:[phone] OFFICE/OUTPA TIENT VISIT EST [facility] , [address], [place], [address], [place] tel:[phone] [facility] Follow Up of from january (chief complaint) Allergic rhinitis due to pollenOther adverse food reactions, not elsewhere classifiedAng ioneurotic edema 5 Darrell Hamsa. [address], [place], [place], [address]. tel:[phone] OFFICE/OUTPA TIENT VISIT EST [facility] , [address] [facility], [place], [address], [place] tel:[phone] [facility] Follow Up of from (chief complaint) Allergic rhinitis due to pollenOther adverse food reactions, not elsewhere classifiedCou ghChronic rhinitis 5 Darrell Hamsa. [address] [facility] [address], [place], [place], [address]. tel:[phone] OFFICE/OUTPA TIENT VISIT EST [facility] , [address] [facility], [place], [address], tel:[phone] [facility] allergic reaction (chief complaint) Angioneurotic edemaAdverse food reactionDysur ia 4 Darrell Hamsa. [address] [facility] [address], [place], [place], [address]. tel:[phone] OFFICE/OUTPA TIENT VISIT EST [facility] , [address] [facility], [place], [address], [place] tel:[phone] [facility] follow up from the hospotal (chief complaint) Angioedema 4 Darrell Hamsa. [address], [place], [place], [address]. tel:[phone] OFFICE/OUTPA TIENT VISIT EST [facility] , [address] [address], [place], [address], [place] tel:[phone] [facility] blood work (chief complaint) Adverse food reactionAbnor mal clinical finding 4 Darrell Hamsa. [address], [place], [place], [address]. tel:[phone] OFFICE/OUTPA TIENT VISIT EST [facility] , [address] [facility] [address], [place], [address], tel:[phone] [facility] angioedema and hives (chief complaint) Hives or welts on the skin that appear suddenly duAngioedema 3-201 4 Darrell Hamsa. [address], [place], [place], [address]. tel:[phone] Family History Family Member Type Diagnosis Age [...] Provider Payers Payer name Insurance type Covered alliance party ID Authoriza tion(s) [facility] Choice/Choice Plus E2 [id number] Social History Type Description Quantity Date Captured Comments Sex Female Smoking Status No Information Chief Complaint And Reason For Visit No Information Reason For Referral Reason For Referral No Information Plan Of Treatment Date Type Action Status Referral Ordered: Jannie Torres -Rheumatology (related to Unspecified osteoarthritis, unspecified site) ordered Referral Referred To: Jannie Torres [address] [place], [place], [id number] Ordered: Referrals: Jannie Torres -Rheumatology Consult ordered History Of Present Illness Encounter Date Complaint History Of Prese nt Illness annual This is an annua l appointment for patient1-patient has severe allergic rhinitis. 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 She was seen and evaluated by Infrastructure Manager - Call investigation was negative. Due to [...] takes accolate And is on allergy injections.Dr. 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 Juan Antonio Clark in [facility] is her PCP allergic reaction has c [...] morning she was fine, she drove thru [employer] for breakfast and -ate grill hines and [...] to Dr Marie and Cc :Dr Vernon chirstie Related to Angioedema, subsequent encounter Risks and [...] rhinitis due to pollen cpnsent form to joe sow allergy injections outside the office was given [...] Adverse food reaction Assessments Type Assessment Date No Information Patient Care Teams Name Effective Dates (start - stop) Status Members No Information
== END 2025-04-08 08:25 | disposition home or self-care (01) ==
LOC: ANHIMG 08:32
PROVIDERS: PCP Internal Medicine; Visit Provider Internal Medicine
DX: Z12.31 Encounter for screening mammogram for malignant neoplasm of breast (principal); M81.0 Age-related osteoporosis without current pathological fracture
CPT/HCPCS: 77080

== ENCOUNTER 2025-06-24 13:54 | Emergency (ER) | payer OTHER, SELFPAY ==
--- OUTSIDE RECORDS SUMMARY | 2025-06-06 02:21 | XMS_ITS | Continuity of Care Document ---
Author Organization [facility] Address [address] [place] [address] Phone Care Team Providers Care Clay Shop Supervisor Name Role Phone Darrell ESPINOZA, Awa Unavailable Unavailabl e Allergies, Adverse Reactions, Alerts Substance Reaction Status Criticality Sulfa (Sulfonamide Antibiotics) Rash Active No Information Medications Medication Instructions Dosage Effective Dates (start - stop) Status Comments Orladeyo 110 mg capsule take 1 capsule by oral route every day 110 MG - Active PA - approved till june 2026, , sent to [facility] prednisone 10 mg tablet TAKE 5 TABLETS BY MOUTH EVERY DAY - Active doxycycline hyclate 100 mg capsule take 1 capsule by oral route every day 100 MG - Active epinastine 0.05 % eye drops INSTILL 1 DROP IN BOTH EYES TWICE A DAY - Active azelastine 137 mcg (0.1 %) nasal spray USE 2 SPRAYS IN EACH NOSTRIL TWICE A DAY - Active famotidine 40 mg tablet TAKE 1 TABLET DAILY AT BEDTIME - Active Xolair 150 mg/mL subcutaneous syringe [...] Longer Active Procedures Procedure Date Omalizumab injection CHEMO ANTI-NEOPL SQ/IM OFFICE/OUTPATIENT VISIT EST Omalizumab injection THER/PROPH/DIAG INJ [...] [facility] , [address], [place], [address], [place] tel:[phone] [facility] No Information 5 Darrell Hamsa. [address], [place], [place], [address]. tel:[phone] OFFICE/OUTPA TIENT VISIT EST [facility] , [address], [place], [address], [place] tel:[phone] [facility] Chronic idiopathic urticariaRosa ceaAngioedema , subsequent encounter 5 Darrell Hamsa. [address], [place], [place], [address]. tel:[phone] [facility] , [address], [place], [address], [place] tel:[phone] [facility] No Information 5 Darrell Hamsa. [address], [place], [place], [address]. tel:[phone] [facility] , [address], [place], [address], [place] tel:[phone] [facility] No Information 5 Darrell Hamsa. [address], [place], [place], [address]. tel:[phone] [facility] , [address], [place], [address], [place] tel:[phone] [facility] No Information 5 Darrell Hamsa. [address], [place], [place], [address]. tel:[phone] [facility] , [address], [place], [address], [place] tel:[phone] [facility] No Information 5 Darrell Hamsa. [address], [place], [place], [address]. tel:[phone] OFFICE/OUTPA TIENT VISIT EST [facility] , [address], [place], [address], [place] tel:[phone] [facility] Other allergic rhinitisChron ic idiopathic urticariaAlle rgic rhinitis due to animal (cat) (dog) hair and danderAllergi c rhinitis due to pollenCervica l lymphadenopat hy 5 Darrell Hamsa. [address], [place], [place], [address]. tel:[phone] [facility] , [address], [place], [address], [place] tel:[phone] [facility] No Information 5 Darrell Hamsa. [address], [place], [place], [address]. tel:[phone] OFFICE/OUTPA TIENT VISIT EST [facility] , [address], [place], [address], [place] tel:[phone] [facility] annual (chief complaint) Defects in complement systemChronic idiopathic urticariaAngi oedema, subsequent encounterOthe r allergic rhinitisRosac ea 5 Darrell Hamsa. [address], [place], [place], [address]. tel:[phone] OFFICE/OUTPA TIENT VISIT EST [facility] , [address], [place], [address], [place] tel:[phone] [facility] annual and xolair (chief complaint) Angioedema, subsequent encounterChro vannessa idiopathic urticariaAlle rgic rhinitis due to animal (cat) (dog) hair and danderAllergi c rhinitis due to pollenDefects in complement systemMild persistent asthma, uncomplicated 4 Darrell Hamsa. [address], [place], [place], [address]. tel:[phone] [facility] , [address], [place], [address], [place] tel:[phone] [facility] Allergic rhinitis due to pollenAllergi c rhinitis due to animal (cat) (dog) hair and danderChronic idiopathic urticariaAngi oedema, subsequent encounter 3 Darrell Hamsa. [address], [place], [place], [address]. tel:[phone] OFFICE/OUTPA TIENT VISIT EST [facility] , [address], [place], [address], tel:[phone] [facility] annual (chief complaint) Body mass index [BMI] 45.0-49.9, adultAllergic rhinitis due to pollenOther allergic rhinitisAller gic rhinitis due to animal (cat) (dog) hair and danderAngioed viral, subsequent encounterEgg allergyDefect s in complement systemChronic idiopathic urticariaVacc ine counseling 2 Darrell Hamsa. [address], [place], [place], [address]. tel:[phone] Specialist : Gabe Medina, [address], [place], [address]. tel:[phone] [facility] , [address] , [place], [address], tel:[phone] [facility] Allergic rhinitis due to animal (cat) (dog) hair and danderOther allergic rhinitisAller gic rhinitis due to pollen 2 Darrell Hamsa. [address], [place], [place], [address]. tel:[phone] OFFICE/OUTPA TIENT VISIT EST [facility] , [address] , [place], [address], [place] tel:[phone] [facility] f/u (chief complaint) Angioedema, subsequent encounterDefe cts in complement systemChronic idiopathic urticariaAlle rgic rhinitis due to animal (cat) (dog) hair and danderAllergi c rhinitis due to pollenOther allergic rhinitisEgg allergyBody mass index [BMI] 45.0-49.9, adult May- 1 Darrell Hamsa. [address], [place], [place], [address]. tel:[phone] OFFICE/OUTPA TIENT VISIT EST [facility] , [address], [place], [address], [place] tel:[phone] [facility] Annual check-up (chief complaint) Allergic rhinitis due to animal (cat) (dog) hair and danderAngioed viral, subsequent encounterChro vannessa idiopathic urticariaAlle rgic rhinitis due to pollenDefects in complement systemBody mass index [BMI] 45.0-49.9, adult Mar- 1 Darrell Hamsa. [address], [place], [place], [address]. tel:[phone] Specialist : Gbae Medina, [address], [place], [address]. tel:[phone] [facility] , [address], [place], [address], [place] tel:[phone] [facility] No Information 0 Darrell Hamsa. [address], [place], [place], [address]. tel:[phone] OFFICE/OUTPA TIENT VISIT EST [facility] , [address], [place], [address], [place] tel:[phone] [facility] cluster (chief complaint) Allergic rhinitis due to animal (cat) (dog) hair and danderOther allergic rhinitisAller gic rhinitis due to pollenChronic idiopathic urticariaAngi oedema, subsequent encounterEsse ntial (primary) hypertension 0 Darrell Hamsa. [address], [place], [place], [address]. tel:[phone] OFFICE/OUTPA TIENT VISIT EST [facility] , [address], [place], [address], [place] tel:[phone] [facility] cluster immunotherapy (chief complaint) Allergic rhinitis due to animal (cat) (dog) hair and danderAllergi c rhinitis due to pollenOther allergic rhinitisAngio edema, subsequent encounterChro vannessa idiopathic urticaria 0 Darrell Hamsa. [address], [place], [place], [address]. tel:[phone] OFFICE/OUTPA TIENT VISIT EST [facility] , [address], [place], [address], [place] tel:[phone] [facility] here for breaking out (chief complaint) Allergic rhinitis due to animal (cat) (dog) hair and danderOther allergic rhinitisAller gic rhinitis due to pollenChronic idiopathic urticariaAngi oedema, subsequent encounterBody mass index (BMI) 45.0-49.9, adult 0 Darrell Hamsa. [address], [place], [place], [address]. tel:[phone] Specialist : Gabe Medina, [address], [place], [address]. tel:[phone] [facility] , [address], [place], [address], [place] tel:[phone] [facility] No Information 0 Darrell Hamsa. [address], [place], [place], [address]. tel:[phone] [facility] , [address], [place], [address], [place] tel:[phone] [facility] Chronic idiopathic urticariaAlle rgic rhinitis due to pollenOther allergic rhinitisAller gic rhinitis due to animal (cat) (dog) hair and dander 0 Darrell Hamsa. [address], [place], [place], [address]. tel:[phone] OFFICE/OUTPA TIENT VISIT EST [facility] , [address], [place], [address], [place] tel:[phone] [facility] Annual check-up (chief complaint) Allergic rhinitis due to pollenChronic idiopathic urticariaRheu matoid arthritis, involving unspecified site, unspecified rheumatoid factor presenceEgg allergy 9 Darrell Hamsa. [address], [place], [place], [address]. tel:[phone] Specialist : Gabe Medina, [address], [place], [address]. tel:[phone] [facility] , [address], [place], [address], [place] tel:[phone] [facility] Angioedema, subsequent encounterChro vannessa idiopathic urticariaAlle rgic rhinitis due to pollen 0 9 Darrell Hamsa. [address], [place], [place], [address]. tel:[phone] [facility] , [address], [place], [address], [place] tel:[phone] [facility] Other urticaria May- 8 Darrell Hamsa. [address], [place], [place], [address]. tel:[phone] OFFICE/OUTPA TIENT VISIT EST [facility] , [address], [place], [address], [place] tel:[phone] [facility] Angioedema, subsequent encounterAlle rgic rhinitis due to pollenOther urticaria Dec- 8 Darrell Hamsa. [address], [place], [place], [address]. tel:[phone] OFFICE/OUTPA TIENT VISIT EST [facility] , [address], [place], [address], [place] tel:[phone] [facility] allergy evaluation (chief complaint) Chronic idiopathic urticariaAngi oedema, subsequent encounterOthe r allergic rhinitisBody mass index (BMI) 50-59.9 , adult Nov- 8 Darrell Hamsa. [address], [place], [place], [address]. tel:[phone] OFFICE/OUTPA TIENT VISIT EST [facility] , [address], [place], [address], [place] tel:[phone] [facility] xolair injection (chief complaint) Allergy to pollenChronic idiopathic urticariaAngi oedema, subsequent encounter 7 Darrell Hamsa. [address], [place], [place], [address]. tel:[phone] OFFICE/OUTPA TIENT VISIT EST [facility] , [address], [place], [address], [place] tel:[phone] [facility] angioedema and hives (chief complaint)all ergy injections (chief complaint) Angioedema, subsequent encounterChro vannessa idiopathic urticariaAlle rgy to pollen 7 Darrell Hamsa. [address], [place], [place], [address]. tel:[phone] [facility] , [address], [place], [address], [place] tel:[phone] [facility] Follow Up of cluster immunotherapy (chief complaint) Allergy to pollenHivesAn gioedema, subsequent encounter 7 Darrell Hamsa. [address], [place], [place], [address]. tel:[phone] [facility] , [address], [place], [address], [place] tel:[phone] [facility] cluster immunotherapy (chief complaint) Allergy to pollenOther allergic rhinitisHives 7 Darrell Hamsa. [address], [place], [place], [address]. tel:[phone] [facility] , [address], [place], [address], [place] tel:[phone] [facility] allergy evaluation (chief complaint) Allergic rhinitis due to pollenChest congestion 7 Darrell Hamsa. [address], [place], [place], [address]. tel:[phone] OFFICE/OUTPA TIENT VISIT EST [facility] , [address], [place], [address], [place] tel:[phone] [facility] Follow Up of first allergy injection (chief complaint) Angioedema, subsequent encounterAlle rgic rhinitis due to pollenRash 7 Darrell Hamsa. [address], [place], [place], [address]. tel:[phone] OFFICE/OUTPA TIENT VISIT EST [facility] , [address], [place], [address], [place] tel:[phone] [facility] Annual check-up (chief complaint) Angioedema, subsequent encounterAlle rgic rhinitis due to pollenChronic urticariaHip pain, bilateralPain in left hip 7 Darrell Hamsa. [address], [place], [place], [address]. tel:[phone] OFFICE/OUTPA TIENT VISIT EST [facility] , [address], [place], [address], [place] tel:[phone] [facility] allergy evaluation (chief complaint) Angioedema, subsequent encounterAlle rgic rhinitis due to pollen 6 Darrell Hamsa. [address], [place], [place], [address]. tel:[phone] OFFICE/OUTPA TIENT VISIT EST [facility] , [address], [place], [address], [place] tel:[phone] [facility] Annual check-up (chief complaint) Angioedema, subsequent encounterAlle rgic rhinitis due to pollenChronic urticaria 6 Darrell Hamsa. [address], [place], [place], [address]. tel:[phone] [facility] , [address], [place], [address], [place] tel:[phone] [facility] Unspecified osteoarthriti s, unspecified site 5 Darrell Hamsa. [address], [place], [place], [address]. tel:[phone] OFFICE/OUTPA TIENT VISIT EST [facility] , [address], [place], [address], [place] tel:[phone] [facility] reactions from allergy injections (chief complaint)rev iew of her lab work (chief complaint) Other allergic rhinitisAller gic rhinitis due to animal (cat) (dog) hair and danderLocaliz ed edemaAllergic urticariaFood allergy 5 Darrell Hamsa. [address], [place], [place], [address]. tel:[phone] OFFICE/OUTPA TIENT VISIT EST [facility] , [address], [place], [address], tel:[phone] [facility] start her first allergy injections (chief complaint) Angioneurotic edemaAllergic rhinitis due to pollen 5 Darrell Hamsa. [address], [place], [place], [address]. tel:[phone] OFFICE/OUTPA TIENT VISIT EST [facility] , [address], [place], [address], [place] tel:[phone] [facility] Follow Up of from january (chief complaint) Allergic rhinitis due to pollenOther adverse food reactions, not elsewhere classifiedAng ioneurotic edema 5 Darrell Hamsa. [address], [place], [place], [address]. tel:[phone] OFFICE/OUTPA TIENT VISIT EST [facility] , [address], [place], [address], [place] tel:[phone] [facility] Follow Up of from (chief complaint) Allergic rhinitis due to pollenOther adverse food reactions, not elsewhere classifiedCou ghChronic rhinitis 5 Darrell Hamsa. [address], [place], [place], [address]. tel:[phone] OFFICE/OUTPA TIENT VISIT EST [facility] , [address], [place], [address], [place] tel:[phone] [facility] allergic reaction (chief complaint) Angioneurotic edemaAdverse food reactionDysur ia 4 Darrell Hamsa. [address], [place], [place], [address]. tel:[phone] OFFICE/OUTPA TIENT VISIT EST [facility] , [address], [place], [address], [place] tel:[phone] [facility] follow up from the hospotal (chief complaint) Angioedema 4 Darrell Hamsa. [address], [place], [place], [address]. tel:[phone] OFFICE/OUTPA TIENT VISIT EST [facility] , [address], [place], [address], [place] tel:[phone] [facility] blood work (chief complaint) Adverse food reactionAbnor mal clinical finding 4 Darrell Hamsa. [address], [place], [place], [address]. tel:[phone] OFFICE/OUTPA TIENT VISIT EST [facility] , [address], [place], [address], [place] tel:[phone] [facility] angioedema and hives (chief complaint) Hives or welts on the skin that appear suddenly duAngioedema 4 Darrell Hamsa. [address], [place], [place], [address]. tel:[phone] Family History Family Member Type Diagnosis Age At Onset Problem (finding) Family history of Systemic lupus erythematosus Immunizations Vaccine Date Status Comments SARS-COV-2 (COVID-19) marissa harden, Lashawn, spike protein, LNP, preservative free, 100 mcg/0.5mL dose (Moderna) administered Source: Other Provid er Influenza, injectable, quadrivalent, preservative free, 3 yrs or older administered Note: she received t he flublcok ; Source: Other Provider Payers Payer name Insurance type Covered democrat ID Authoriza tistepan(s) [facility] Choice/Choice Plus E2 [id number] Social History Type Description Quantity Date Captured Comments Sex Female Smoking Status No Information Chief Complaint And Reason For Visit No Information Reason For Referral Reason For Referral No Information Plan Of Treatment Date Type Action Status Referral Ordered: Jannie Torres -Rheumatology (related to Unspecified osteoarthritis, unspecified site) ordered Referral Referred To: Jannie Torres [address] [place], [place], [phone] Ordered: Referrals: Jannie Torres -Rheumatology Consult ordered History Of Present Illness Encounter Date Complaint History Of Prese nt Illness annual This is an annua l appointment for patient1-patient has severe allergic rhinitis. 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 She was seen and evaluated by [employer] - Call investigation was negative. Due to the COVID- pandemic patient had decided Only to get [...] And is on allergy injections.Dr. 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, she saw a chief librarian circulation department - last week - spoke to him [...] bone density was done by her - [facility] - 2 years ago - she was [...] no ER visits reactions from allergy injection s ella was asked to come in here to [...] for sesame seed, peanuts, treenuts and egg [id number] were not lowTSH was normal CU panel [...] 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 Juan Antonio Clark in [facility] is her PCP allergic reaction has c [...] morning she was fine, she drove thru [employer] for breakfast and -ate mc grill hines and cheese -no egg ,drank tea, did not have any lunch , no snack, dinner was - mc donalds - ham burger and tea , [...] to Body mass index (BMI) 45.0-49.9, adult Giving encouragement to exercise Related to Body mass index (BMI) 50-59.9 , adult Dietary needs education Related to Body [...]
--- NOTE | ~2025-06-24 | CT_ITS ---
EXAMINATION: CT brain wo con DATE: 06/24/2025 15:57 INDICATION: Near syncope TECHNIQUE: Computed tomography (CT) of the head was performed without intravenous contrast. Sagittal and coronal reconstructions were performed. The mA was adjusted according to patient size. Iterative reconstruction technique was employed. The dose-length product was 605.33 mGy-cm. COMPARISON: None FINDINGS: No acute intracranial hemorrhage, acute infarction or abnormal extra axial fluid collection. There is mild scattered white matter hypoattenuation consistent with chronic small vessel ischemic disease. Ventricles are normal and symmetric. No mass/mass effect. The orbits, paranasal sinuses and mastoid air cells are normal. IMPRESSION: 1. Mild scattered white matter hypoattenuation consistent with chronic small vessel ischemic disease. No acute intracranial process. Reviewed, dictated and finalized at location A. IMPRESSION: 1. Mild scattered white matter hypoattenuation consistent with chronic small ve ssel ischemic disease. No acute intracranial process.
--- NOTE | ~2025-06-24 | XR_ITS ---
EXAMINATION: XR chest 2V 06/24/2025 16:02 INDICATION: Near syncope PROCEDURE: 2 view chest COMPARISON: No prior studies for comparison. FINDINGS: The lungs are clear. The cardiomediastinal silhouette is within normal limits. There are no pleural effusions. There is no pneumothorax suspected. IMPRESSION: 1: NO ACUTE CARDIOPULMONARY DISEASE. Reviewed, dictated and finalized at location O.
[2025-06-24 13:56] VITALS: BP 148/72; PULSE 72; RESP 18; TEMP 36.4; O2SAT 100
--- NOTE | 2025-06-24 15:24 | ED_ITS ---
HPI - Dizziness General Chief Complaint: Dizziness <ALBA Middleton Last Filed: 06/24/25 16:13> Stated Complaint: lightheaded dizzy nausea <ALBA Middleton Last Filed: 06/24/25 16:13> Time Seen by Provider: 06/24/25 15:24 <ALBA Middleton Last Filed: 06/24/25 16:13> Focused HPI: Patient is a 70 y/o female who presents to the ED with c/o near syncope. Patient reports she was at work around 1230pm, when she began feeling lightheaded, blurry vision, nauseous. She felt near syncopal at that time and also reports it felt as though her head was spinning. States she had hx of vertigo with an ear infection several years ago but this did not feel similar. States sx's lasted 1 hour. Her BP was 160/90 at that time. She did not lose consciousness. States she feels fatigued currently with pain in her neck. Denies focal weakness/numbness, SOB, CP. Does admit to indigestion/belching. GENERAL: Well-appearing, morbidly obese with BMI of 48.3, and in no acute distress. HEAD: Normocephalic, atraumatic. CHEST: Clear to auscultation. ?No respiratory distress. HEART: Regular rate and rhythm.? NEURO: ?Alert and oriented x3. No focal deficits. Strength equal in upper and lower extremities, strong machine welt butter strength bilaterally. No pronator drift. No dysarthria. Patient screened in triage and initial orders placed.? ?Additional care and disposition to be based upon?diagnostic testing and treatment. <ALBA Middleton Last Filed: 06/24/25 16:13> Source: patient <ALBA Middleton Last Filed: 06/24/25 16:13> Mode of arrival: ambulatory <ALBA Middleton Last Filed: 06/24/25 16:13> Limitations: no limitations <ALBA Middleton Last Filed: 06/24/25 16:13> Related Data Allergies/Adverse Reactions: Allergies Allergy/AdvReac Type Severity Reaction Status Date / Time Sulfa (Sulfonamide Allergy Intermediate RASH Unverified 12/01/13 16:56 Antibiotics) egg Allergy Unknown Unverified 12/01/13 16:56 Nut Tree Allergy Unknown Uncoded 12/01/13 16:56 SHELLFISH Allergy Unknown Uncoded 12/01/13 16:56 <Joanne Burns PA-C - Last Filed: 06/24/25 16:13> PMFSH Social History Social History: Social History Spiritual care concerns: No <Joanne Burns PA-C - Last Filed: 06/24/25 16:13> Exam 2 Narrative: GENERAL: Well-appearing, well-nourished, and in no acute distress. HEAD: Normocephalic, atraumatic. EYES: PERRL and EOMI. Left gaze nystagmus. ENT: Nares clear, no rhinorrhea or epistaxis. Mucous membranes moist. CHEST: Clear to auscultation. No respiratory distress. HEART: Regular rate and rhythm. Normal peripheral pulses. ABDOMEN: Soft, nontender, nondistended. EXTREMITIES: Normal range of motion. No edema. SKIN: Warm, dry, no rash. NEURO: Alert and oriented x3. PSYCH: Normal mood and affect. <Alonso Nelson MD - Last Filed: 06/24/25 19:09> Course Course Emergency Course: Patient resting comfortably. Dizziness resolved with meclizine. Headache improving with Toradol. Imaging unremarkable. Patient given reassurance. Discharge home. May be an exacerbation of her migraine headache which typically gives her vertigo or may be related to her history of Meniere's disease. <Alonso Nelson MD - Last Filed: 06/24/25 19:09> Vital Signs Vital signs: Vital Signs Temperature 97.6 F 06/24/25 13:56 Pulse Rate 72 06/24/25 13:56 Respiratory Rate 18 06/24/25 13:56 Blood Pressure 148/72 H 06/24/25 13:56 Pulse Oximetry 100 06/24/25 13:56 Oxygen Delivery Room Air 06/24/25 13:56 Temperature 97.6 F 06/24/25 13:56 Pulse Rate 72 06/24/25 13:56 Respiratory Rate 18 06/24/25 13:56 Blood Pressure 148/72 H 06/24/25 13:56 Pulse Oximetry 100 06/24/25 13:56 Oxygen Delivery Room Air 06/24/25 13:56 <Joanne Burns PA-C - Last Filed: 06/24/25 16:13> Vital Signs Temperature 97.6 F 06/24/25 13:56 Pulse Rate 72 06/24/25 13:56 Respiratory Rate 18 06/24/25 13:56 Blood Pressure 148/72 H 06/24/25 13:56 Pulse Oximetry 100 06/24/25 13:56 Oxygen Delivery Room Air 06/24/25 13:56 Temperature 97.6 F 06/24/25 13:56 Pulse Rate 72 06/24/25 13:56 Respiratory Rate 18 06/24/25 13:56 Blood Pressure 148/72 H 06/24/25 13:56 Pulse Oximetry 100 06/24/25 13:56 Oxygen Delivery Room Air 06/24/25 13:56 <Alonso Nelson MD - Last Filed: 06/24/25 19:09> MDM - Dizziness MDM Narrative Medical decision making narrative: MSE by JOCELYN in triage. <Joanne Burns PA-C - Last Filed: 06/24/25 16:13> Lab Data Result diagrams: 06/24/25 15:48 06/24/25 17:48 <Joanne Burns PA-C - Last Filed: 06/24/25 16:13> Labs: Lab Results 06/24/25 06/24/25 Range/Units 15:48 17:48 WBC 15.0 H (4.5-10.0) K/mm3 RBC 4.68 (4.2-5.4) M/mm3 Hgb 13.2 (12.0-15.0) g/dL Hct 42.7 (37.0-47.0) % MCV 91.2 (80-100) fl MCH 28.2 (26-34) pg MCHC 30.9 L (32-36) g/dl RDW 13.9 (11.5-14.5) % Plt Count 288 (150-375) k/mm3 MPV 10.2 (7.4-10.4) fl Immature Gran % (Auto) 0.7 H (0-0.5) % Neut % (Auto) 75.1 H (45.5-73.1) % Lymph % (Auto) 17.8 L (18.3-44.2) % Gosper % (Auto) 4.7 (2.6-8.5) % Eos % (Auto) 1.2 (0-4.4) % Baso % (Auto) 0.5 (0.2-1.2) % Lymph # (Auto) 2.67 (0.9-3.2) K/mm3 Gosper # (Auto) 0.7 H (0.1-0.6) K/mm3 Eos # (Auto) 0.2 (0-0.3) K/mm3 Baso # (Auto) 0.1 (0.0-0.1) K/mm3 Abs Immat Gran (auto) 0.11 H (0.00-0.031) K/mm3 Absolute Neuts (auto) 11.2 H (1.3-6.7) K/mm3 Absolute Nucleated RBC 0.000 (0.0-0.012) K/mm3 Band Neutrophils % 0 (0-6) % Nucleated RBC % 0.0 (0.0-0.2) % Platelet Estimate Adequate (Adequate) Clumped Platelets Present % Immature Plt Fraction 1.5 (0.9-11.2) % Hypochromasia 1+ Schistocytes None seen PT 12.5 (11.1-14.7) Seconds INR 0.9 APTT 20.0 L (22.3-36.8) Seconds Sodium 141 (137-145) mmol/L Potassium 3.5 (3.4-5.0) mmol/L Chloride 106 (98-107) mmol/L Carbon Dioxide 28 (22-30) mmol/L Anion Gap 7 (4-12) mmol/L BUN 16 (7-17) mg/dL Creatinine 0.67 L (0.7-1.0) mg/dL Estim Creat Clear Calc 82 ml/min Estimated GFR > 60 (59 - ) Glucose 102 (65-110) mg/dL Calcium 8.9 (8.4-10.2) mg/dL Magnesium 2.2 (1.6-2.3) mg/dL Total Bilirubin 0.5 (0.2-1.3) mg/dL AST 21 (14-36) U/L ALT 16 (6-35) U/L Alkaline Phosphatase 103 (38-126) U/L Troponin I < 0.012 (0.000-0.034) ng/mL Total Protein 7.1 (6.3-8.2) g/dL Albumin 3.9 (3.5-5.1) g/dL <Joanne Burns PA-C - Last Filed: 06/24/25 16:13> Lab Results 06/24/25 06/24/25 Range/Units 15:48 17:48 WBC 15.0 H (4.5-10.0) K/mm3 RBC 4.68 (4.2-5.4) M/mm3 Hgb 13.2 (12.0-15.0) g/dL Hct 42.7 (37.0-47.0) % MCV 91.2 (80-100) fl MCH 28.2 (26-34) pg MCHC 30.9 L (32-36) g/dl RDW 13.9 (11.5-14.5) % Plt Count 288 (150-375) k/mm3 MPV 10.2 (7.4-10.4) fl Immature Gran % (Auto) 0.7 H (0-0.5) % Neut % (Auto) 75.1 H (45.5-73.1) % Lymph % (Auto) 17.8 L (18.3-44.2) % Gosper % (Auto) 4.7 (2.6-8.5) % Eos % (Auto) 1.2 (0-4.4) % Baso % (Auto) 0.5 (0.2-1.2) % Lymph # (Auto) 2.67 (0.9-3.2) K/mm3 Gosper # (Auto) 0.7 H (0.1-0.6) K/mm3 Eos # (Auto) 0.2 (0-0.3) K/mm3 Baso # (Auto) 0.1 (0.0-0.1) K/mm3 Abs Immat Gran (auto) 0.11 H (0.00-0.031) K/mm3 Absolute Neuts (auto) 11.2 H (1.3-6.7) K/mm3 Absolute Nucleated RBC 0.000 (0.0-0.012) K/mm3 Band Neutrophils % 0 (0-6) % Nucleated RBC % 0.0 (0.0-0.2) % Platelet Estimate Adequate (Adequate) Clumped Platelets Present % Immature Plt Fraction 1.5 (0.9-11.2) % Hypochromasia 1+ Schistocytes None seen PT 12.5 (11.1-14.7) Seconds INR 0.9 APTT 20.0 L (22.3-36.8) Seconds Sodium 141 (137-145) mmol/L Potassium 3.5 (3.4-5.0) mmol/L Chloride 106 (98-107) mmol/L Carbon Dioxide 28 (22-30) mmol/L Anion Gap 7 (4-12) mmol/L BUN 16 (7-17) mg/dL Creatinine 0.67 L (0.7-1.0) mg/dL Estim Creat Clear Calc 82 ml/min Estimated GFR > 60 (59 - ) Glucose 102 (65-110) mg/dL Calcium 8.9 (8.4-10.2) mg/dL Magnesium 2.2 (1.6-2.3) mg/dL Total Bilirubin 0.5 (0.2-1.3) mg/dL AST 21 (14-36) U/L ALT 16 (6-35) U/L Alkaline Phosphatase 103 (38-126) U/L Troponin I < 0.012 (0.000-0.034) ng/mL Total Protein 7.1 (6.3-8.2) g/dL Albumin 3.9 (3.5-5.1) g/dL <Alonso Nelson MD - Last Filed: 06/24/25 19:09> Discharge Plan Discharge Clinical Impression: Vertigo <Joanne Burns PA-C - Last Filed: 06/24/25 16:13> Patient Disposition: Home <Joanne Burns PA-C - Last Filed: 06/24/25 16:13> Condition: Stable <Joanne Burns PA-C - Last Filed: 06/24/25 16:13> Instructions: Vertigo (ED) <Joanne Burns PA-C - Last Filed: 06/24/25 16:13> Additional Instructions: Return the ER if you have fever 100.4? F, you cannot keep down food water, you lose consciousness, or you have additional concerns. <Joanne Burns PA-C - Last Filed: 06/24/25 16:13> Patient Language: Cypriot <ALBA Middleton Last Filed: 06/24/25 16:13> Prescriptions: New meclizine 25 mg tablet 25 mg PO TID Qty: 14 0RF <ALBA Middleton Last Filed: 06/24/25 16:13> Follow-up/Referrals: Loo,Juan Antonio De La Vega MD [Primary Care Provider] - 1 Week <ALBA Middleton Last Filed: 06/24/25 16:13>
--- NOTE | 2025-06-24 15:31 | ECG_ITS ---
Test Date: 2025-06-24 15:40:10 Measurements Intervals [place] Rate: 74 P: 46 ND: 180 QRS: -15 QRSD: 101 T: 17 QT: 402 QTc: 448 Interpretive Statements SINUS RHYTHM LOW QRS VOLTAGE IN PRECORDIAL LEADS LEFT VENTRICULAR HYPERTROPHY POSSIBLE ANTERIOR MYOCARDIAL INFARCTION , PROBABLY OLD BORDERLINE T WAVE ABNORMALITY- ANTERIOR LEADS BASELINE ARTIFACT- I, III, AVR, AVL ABNORMAL ECG No previous ECG available for comparison Electronically Signed On 06-24-2025 16:10:57 CDT by Severino Andrade D.O.
[2025-06-24 15:59] LABS: Hematocrit 42.7 % (37.0-47.0); Hemoglobin 13.2 g/dL (12.0-15.0); Immature Granulocyte Percent A 0.7 % (0-0.5); Immature Platelet Fraction Pct 1.5 % (0.9-11.2); Lymphocytes Absolute Auto 2.67 K/mm3 (0.9-3.2); Mean Corpuscular HGB Conc 30.9 g/dl (32-36); Mean Corpuscular Hemoglobin 28.2 pg (26-34); Mean Corpuscular Volume 91.2 fl (80-100); Nucleated Red Blood Cells Absolute Auto 0.000 K/mm3 (0.0-0.012); Nucleated Red Blood Cells Perc 0.0 % (0.0-0.2); Platelet Count Result 288 k/mm3 (150-375); Red Blood Count 4.68 M/mm3 (4.2-5.4); White Blood Count 15.0 K/mm3 (4.5-10.0)
--- OUTSIDE RECORDS SUMMARY | 2025-06-24 16:03 | XMS_ITS | Encounter Summary ---
Author Organization [facility] Health Address [address] 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
--- OUTSIDE RECORDS SUMMARY | 2025-06-24 16:03 | XMS_ITS | Clinical Summary ---
Author Organization 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
--- OUTSIDE RECORDS SUMMARY | 2025-06-24 16:03 | XMS_ITS | Clinical Summary ---
Author Organization [facility] Address [address] [place] [address] Care Team Providers Care Analytics Manager Name Role Phone Edgard Olmstead MD Primary Care Provider [phone] Source Comments [facility],non-owned Affiliates and Associated Physician Practices is amultiple site organization consisting of ambulatory clinics and hospital sitesin [place], [place], [place] and [place]. This disclosure is being madepursuant to the Care Everywhere program and may not contain all information available regarding this patient. Last updated 18.[facility] Allergies Active Allergy Reactions Criticality Noted Date Comments Sulfa Drugs Rash Low 03/10/2012 Medications * Be aware that medications may not be up to date on this document. Alwaysverify current medications with the patient. albuterol HFA (PROAIR HFA) 108 (90 BASE) MCG/ACT inhaler 2 puff up to four times daily as needed. 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 Gender Identity Not on file Sexual Orientation [...] - Risk 60-74 years 1-dose series) 2017 DEPRESSION SCREENING 09/05/2024 COVID-19 VACCINE ( - 2023-2 5 season) 2025 INFLUENZA VACCINE (#1) 2025 HEPATITIS B VACCINE [...] PM CDT Narrative Resulting Agency Comment [facility] [address] [facility] [id number] us Edgard Olmstead MD LAB - CHEMISTRY ORDERABLES Final Result [facility] ACCOUNT BILL [address] [place] [address] from Last 3 Months or Most Recently Relevant to Health Maintenance Insurance Care Teams Analytics Manager Relationship Specialty Start Date End Date Edgard Olmstead MD PCP - General Family Medicine 02/29/12
[2025-06-24 16:41] LABS: Band Neutrophils Percent 0 % (0-6); Hypochromasia 1+; Schistocytes None Seen
[2025-06-24 17:05] LABS: INR 0.9; Prothrombin Time 12.5 Seconds (11.1-14.7)
[2025-06-24 17:11] LABS: Partial Thromboplastin Time 20.0 Seconds (22.3-36.8)
[2025-06-24 18:18] LABS: Alanine Aminotransferase 16 U/L (6-35); Albumin Level 3.9 g/dL (3.5-5.1); Alkaline Phosphatase 103 U/L (38-126); Anion Gap 7 mmol/L (4-12); Aspartate Amino Transferase 21 U/L (14-36); Bilirubin,Total 0.5 mg/dL (0.2-1.3); Blood Urea Nitrogen 16 mg/dL (7-17); Calcium 8.9 mg/dL (8.4-10.2); Carbon Dioxide 28 mmol/L (22-30); Chloride 106 mmol/L (98-107); Estimated CRCL calculation 82 ml/min; Estimated Glomerular Filt Rate > 60; Glucose 102 mg/dL (65-110); Magnesium 2.2 mg/dL (1.6-2.3); Potassium 3.5 mmol/L (3.4-5.0); Sodium 141 mmol/L (137-145); Total Protein 7.1 g/dL (6.3-8.2)
[2025-06-24] MEDS: SODIUM CHLORIDE 0.9% IV 1,000 ML 999 ML IV CONT (18:25)
[2025-06-24] MEDS: KETOROLAC 30 MG/ML VIAL (*BKC) IV PUSH (18:26)
[2025-06-24] MEDS: MECLIZINE HCL 25 MG TABLET PO (18:26)
[2025-06-24 18:28] LABS: Troponin I < 0.012 ng/mL (0.000-0.034)
--- OUTSIDE RECORDS SUMMARY | 2025-06-24 19:25 | XMS_ITS | Encounter Summary ---
Author Organization [facility] Health Address [address] 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
--- OUTSIDE RECORDS SUMMARY | 2025-06-24 19:25 | XMS_ITS | Clinical Summary ---
Author Organization [facility] [employer] Address [address] [place] [address] Care Team Providers Care Network Consultant Name Role Phone Edgard Olmstead MD Primary Care Provider [phone] Source Comments [facility] [employer],non-owned Affiliates and Associated Physician Practices is amultiple site organization consisting of ambulatory clinics and hospital sitesin [place], [place], [place] and [place]. This disclosure is being madepursuant to the Care Everywhere program and may not contain all information available regarding this patient. Last updated 18.[facility] [employer] [facility] Allergies Active Allergy Reactions Criticality Noted Date Comments Sulfa Drugs Rash Low 03/10/2012 Medications * Be aware that medications may not be up to date on this document. Alwaysverify current medications with the patient. albuterol HFA (PROAIR HFA) 108 (90 BASE) MCG/ACT inhaler 2 puff up to four times daily as needed. 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
--- OUTSIDE RECORDS SUMMARY | 2025-06-24 19:25 | XMS_ITS | Clinical Summary ---
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
== END 2025-06-24 20:02 | disposition home or self-care (01) ==
PROVIDERS: Physician Assistant; Emergency Provider Emergency Medicine; PCP Internal Medicine
DX: R42 Dizziness and giddiness (principal); R94.31 Abnormal electrocardiogram [ECG] [EKG]
CPT/HCPCS: 36415; 70450; 71046; 80053; 83735; 84484; 85025; 85055; 85610; 85730; 93005; 96361; 96374; 99284; A9270; J1885; J7030